=== PATIENT | female | born 1960 | race Hispanic/Latino ===

== ENCOUNTER 2018-04-16 16:53 | Inpatient (IN) | payer OTHER ==
[~2018-04-16] VITALS: Ht 154.9 cm; Wt 77.2 kg
[2018-04-16] MEDS ORDERED: SODIUM CHLORIDE 0.9% 1000ML 1,000 ML IV STA (17:08)
[2018-04-16] MEDS ORDERED: PIPER-TAZ 3.375 GM 50 ML IV STA (17:08)
[2018-04-16] MEDS ORDERED: VANCOMYCIN 1GM/NS 250 ML 250 ML IV SCH (17:15)
[2018-04-16] MEDS ORDERED: VANCOMYCIN 1GM/NS 250 ML 250 ML IV STA (17:25)
[2018-04-16] MEDS ORDERED: PIPER-TAZ 3.375 GM 50 ML IV SCH (17:30)
--- OUTSIDE RECORDS SUMMARY | 2018-04-16 18:18 | XMS REPORT | Summary of Care ---
Author Author Mili Morris M.A. Unknown Address Unknown Phone Unavailable Care Team Providers Care Game Master Name Role Phone EDOUARD RUST M.D. Unavailable Unavailable Functional Status Name Dates Details Functional status health issues are not documented Status: Name Dates Details Cognitive status health issues are not documented Status: Problems Name Dates Details Limb pain (729.5, M79.609) Status: Active Medications Name Dates Details Medications not documented Allergies and Adverse Reactions Name Dates Details Allergy history not documented Status: Procedures Procedure Dates Details Procedures not documented Immunization Name Dates Details Immunizations not documented Social History Name Dates Details Unknown if ever smoked Vital Signs Date Test Result Details No Known Vitals to report Results Date Description Value Details [id number] [U] XRAY HIPS BILATERAL MIN 2 VWS AND AP PELVIS [id number] XR HIPS BILATERAL MIN 2 VWS AND AP PELVIS Images acquired, not reported on this accession number. Plan of Care Name Dates Details Planned Observations Planned Goals not documented Planned Encounters Appointment; EDOUARD RUST M.D. On: 23-Apr-2018 8:45 Interventions Provided Labs/Procedures/Imaging* [U] XRAY HIPS BILATERAL MIN 2 VWS AND AP PELVIS [id number]; Done: 26 Mar 2018 Instructions Name Dates Details Instructions not documented Encounters Appointment; EDOUARD RUST M.D. Encounter Diagnosis: Problem not documented On: 26-Mar-2018 15:00
[2018-04-16 18:56] LABS: BASOPHILS % 0.2 % (0.0-1.0); EOSINOPHILS % 0.2 % (0.0-6.0); HEMATOCRIT 32.6 % (34.2-44.1); HEMOGLOBIN 10.7 g/dL (12.0-16.0); LYMPHOCYTES # (AUTO) 1.3 (1.0-3.2); LYMPHOCYTES % 10.9 % (18.0-39.1); MEAN CORPUSCULAR HEMOGLOBIN 25.7 pg (28-32); MEAN CORPUSCULAR HGB CONC 32.8 g/dL (31-35); MEAN CORPUSCULAR VOLUME 78.4 fL (81-99); MONOCYTES # (AUTO) 0.9 (0.2-0.8); MONOCYTES % 7.4 % (4.4-11.3); NEUTROPHILS % 80.8 % (38.7-80.0); PLATELET COUNT 450 x10e3/uL (140-360); RED BLOOD COUNT 4.16 x10e6/uL (3.6-5.1); RED CELL DISTRIBUTION WIDTH 12.4 % (11.7-14.4)
[2018-04-16 19:18] LABS: ALANINE AMINOTRANSFERASE 8 IU/L (0-55); ALBUMIN 2.9 g/dL (3.5-5.0); ALBUMIN/GLOBULIN RATIO 0.4 (0.8-2.0); ALKALINE PHOSPHATASE 133 IU/L (40-150); ANION GAP 15.8 mmol/L (8-16); BLOOD UREA NITROGEN 22 mg/dL (7-26); BUN/CREATININE RATIO 26 (6-25); CALCIUM 10.2 mg/dL (8.4-10.2); CARBON DIOXIDE 24 mmol/L (22-29); CHLORIDE 93 mmol/L (98-107); CREATININE, SERUM 0.84 mg/dL (0.57-1.11); EST GLOMERULAR FILTRATION RATE > 60 ML/MIN (60-); GLUCOSE 263 mg/dL (74-118); POTASSIUM 4.8 mmol/L (3.5-5.1); SODIUM 128 mmol/L (136-145)
[2018-04-16] MEDS ORDERED: SODIUM CHLORIDE 0.9% 1000ML 1,000 ML ONE (20:18)
[2018-04-16] MEDS: MORPHINE SULFATE 2 MG/ML SYR IV PRN (23:19)
[2018-04-16] MEDS ORDERED: METFORMIN HCL500 MG PO (23:31)
[2018-04-16] MEDS ORDERED: GLIPIZIDE5 MG PO (23:31)
[2018-04-16] MEDS ORDERED: OMEPRAZOLE40 MG PO (23:31)
[2018-04-16] MEDS ORDERED: NAPROXEN250 MG PO (23:31)
[2018-04-16] MEDS ORDERED: CYCLOBENZAPRINE10 MG PO (23:31)
[2018-04-17] VITALS (7 sets, daily range): BP systolic 116–136; BP diastolic 61–76
[2018-04-17] MEDS ORDERED: SODIUM CHLORIDE 0.9% 250ML 250 ML ONE (05:55)
[2018-04-17] MEDS: PIPER-TAZ 3.375 GM 50 ML IV SCH ×3 (06:00→22:29)
[2018-04-17] MEDS: VANCOMYCIN 1GM/NS 250 ML 250 ML IV SCH ×2 (08:00→20:26)
[2018-04-17] MEDS: SODIUM CHLORIDE 0.9% 1000ML 1,000 ML IV SCH (14:15)
--- NOTE | 2018-04-17 15:47 | History and Physical ---
CHIEF COMPLAINT: Infection of pubic symphysis bone per the CT of the abdomen and pelvis. Patient was sent from Dr. Montes's office. HPI: Ms. Ring is a 58-year-old female. She has a history of diabetes and hypertension. She was having abdominal pain. Her primary care physician referred her to Dr. Montes and she underwent a CT of the abdomen and pelvis, which showed that there are septic pubic symphysis joints and surrounding inflammatory changes. Patient came to the emergency room and was admitted. Surgery and infectious disease has been consulted. She is having pain in the lower abdomen, which is radiating to the right thigh. She is denying any complaints of chest pain, nausea, or vomiting. REVIEW OF SYSTEMS GENERAL: She was having fever. Denies any chills HEAD: Denies any head trauma. ENT: Denies any earache. CVS: Denies any chest pain. RESPIRATORY: Denies any shortness of breath. GI: Denies any nausea or vomiting. The rest of the review of systems is negative except as in HPI. PAST MEDICAL HISTORY: Hypertension, diabetes. PAST SURGICAL HISTORY: . FAMILY AND SOCIAL HISTORY: She does not smoke and does not drink. PHYSICAL EXAMINATION VITAL SIGNS: Temperature 97.3, pulse of 70, blood pressure 116/61, and respiratory rate of 18. HEENT: Head atraumatic, normocephalic. NECK: Supple. CHEST: Clear to auscultation bilaterally. No wheezing. ABDOMEN: Soft, nontender. EXTREMITIES: No clubbing, cyanosis, or edema. NEUROLOGIC: Awake and alert. No focal neurologic deficit. LABS: White count of 12,000, hemoglobin 10.7, platelets 450. Chemistry: Sodium 128, potassium 4.8, chloride 93, BUN 22, creatinine 0.8, lactic acid 20.2. Blood cultures have been positive for gram-positive cocci in clusters. CT of the abdomen and pelvis without and with contrast shows overall findings concerning for septic pubic symphysis joint with surrounding inflammatory changes, inflammatory changes surrounding the anterior aspect of the bladder which is contagious to pubic symphysis. Gram-stain showing gram-positive cocci in clusters. ASSESSMENT: Ms. Ring is a 58-year-old female. She is septic with positive blood cultures, pubic symphysis infection, and osteomyelitis as a concern. PLAN I have discussed the case with Dr. Feldman and he will evaluate the patient. He has asked the family to bring the CDs so he can evaluate if any surgical intervention is needed. We will consult Dr. Church for antibiotic recommendations. Patient is mildly hyponatremic. I will start the patient on IV normal saline. If it is getting worse, we will consider consulting nephrology. Orthopedic surgery has also been consulted as patient's pubic symphysis is involved. This was discussed with patient's daughter at bedside in detail. Job#: [id number] VIN
[2018-04-17] MEDS: CYCLOBENZAPRINE HCL 10 MG TAB PO SCH (16:01)
--- NOTE | 2018-04-17 18:35 | Consultation ---
DATE OF CONSULTATION: REASON FOR CONSULTATION: Intrapelvic abscess. HISTORY OF PRESENT ILLNESS: This patient, who is a 58-year-old female, apparently has history of diabetes mellitus. She fell about a month ago and she is having pain in the right side anterior to the pelvis. The patient went to see primary care physician who referred her to Dr. Montes. CAT scan of the abdomen showed suprapubic symphysis joint infection, came into the emergency room. Patient is being admitted. PAST MEDICAL HISTORY: Diabetes mellitus, hypertension. PAST SURGICAL HISTORY: . ALLERGIES: NKA. SOCIAL HISTORY: There is no smoking, drug abuse, or alcohol abuse. FAMILY HISTORY: Hypertension. REVIEW OF SYSTEMS HEENT: Negative. PULMONARY: Negative. CARDIAC: Negative. : Negative. SKIN: There is no rash. LABORATORY DATA: Blood culture is showing gram-positive cocci. White count 12.33, hemoglobin of 10. Sodium 128, potassium 4.8, creatinine 0.84. Lactic acid 20.4. PHYSICAL EXAMINATION GENERAL: She is currently alert and oriented. Does not seem to be in any acute distress. VITALS: Stable, currently afebrile. HEENT: She does not appear icteric. NECK: Supple. CHEST: Clear. HEART: S1, S2 normal. ABDOMEN: Soft. IMPRESSION: Infection of pubic symphysis joint, osteomyelitis, probably abscess with bacteremia. Agree with vancomycin. Obtain a sed rate, C-reactive protein. Will check blood cultures. Obtain echocardiogram. Will need 8 weeks of IV antibiotic. Will follow. Job#: [id number] RTMarcelo
--- NOTE | 2018-04-17 20:17 | Diagnostic Imaging Report ---
EXAM: CHEST XRAY LINE PLACEMENT, AP 1 view INDICATION: PICC placement COMPARISON: None FINDINGS: LINES/TUBES: Distal aspect of a left approach PICC terminates in expected location of the distal superior vena cava. LUNGS: No consolidations or edema. PLEURA: No effusions or pneumothorax. HEART AND MEDIASTINUM: Normal size and contour. BONES AND SOFT TISSUES: No acute findings. IMPRESSION: Distal aspect of a left approach PICC terminates in expected location of the distal superior vena cava. Signed by: Dr. Jamila Colorado M.D. on 04/17/2018 8:13 PM
[2018-04-18] VITALS (7 sets, daily range): BP systolic 118–137; BP diastolic 57–77
[2018-04-18] MEDS: SODIUM CHLORIDE 0.9% 1000ML 1,000 ML IV SCH ×3 (00:15→20:15)
[2018-04-18] MEDS: PIPER-TAZ 3.375 GM 50 ML IV SCH ×3 (05:45→22:30)
[2018-04-18 05:58] LABS: BASOPHILS # (AUTO) 0.1 (0.0-0.1); BASOPHILS % 0.6 % (0.0-1.0); EOSINOPHILS # (AUTO) 0.1 (0.0-0.4); EOSINOPHILS % 1.3 % (0.0-6.0); HEMATOCRIT 29.8 % (34.2-44.1); HEMOGLOBIN 9.6 g/dL (12.0-16.0); LYMPHOCYTES # (AUTO) 1.5 (1.0-3.2); LYMPHOCYTES % 17.9 % (18.0-39.1); MEAN CORPUSCULAR HEMOGLOBIN 25.3 pg (28-32); MEAN CORPUSCULAR HGB CONC 32.2 g/dL (31-35); MEAN CORPUSCULAR VOLUME 78.4 fL (81-99); MONOCYTES # (AUTO) 0.9 (0.2-0.8); NEUTROPHILS % 69.7 % (38.7-80.0); PLATELET COUNT 408 x10e3/uL (140-360); RED CELL DISTRIBUTION WIDTH 12.3 % (11.7-14.4)
[2018-04-18 06:43] LABS: ANION GAP 12.8 mmol/L (8-16); BLOOD UREA NITROGEN 11 mg/dL (7-26); BUN/CREATININE RATIO 14 (6-25); CARBON DIOXIDE 26 mmol/L (22-29); CHLORIDE 100 mmol/L (98-107); CREATININE, SERUM 0.79 mg/dL (0.57-1.11); EST GLOMERULAR FILTRATION RATE > 60 ML/MIN (60-); GLUCOSE 184 mg/dL (74-118); POTASSIUM 3.8 mmol/L (3.5-5.1); SODIUM 135 mmol/L (136-145)
[2018-04-18] MEDS: GLIPIZIDE 5 MG TAB PO SCH (08:43)
[2018-04-18] MEDS: VANCOMYCIN 1GM/NS 250 ML 250 ML IV SCH ×2 (08:43→20:25)
[2018-04-18] MEDS: PANTOPRAZOLE SOD 40 MG TABEC PO SCH (08:44)
[2018-04-18] MEDS: CYCLOBENZAPRINE HCL 10 MG TAB PO SCH ×2 (08:44→16:36)
[2018-04-18] MEDS: METFORMIN HCL 500 MG TAB PO SCH (16:36)
--- NOTE | 2018-04-18 20:07 | Consultation ---
DATE OF CONSULTATION: April 18, 2018 CARDIOLOGY CONSULTATION REASON FOR CONSULTATION: Evaluate cardiac status. HISTORY OF PRESENT ILLNESS: Ms. Ring is a 58-year-old lady with past medical history of type 2 diabetes, who presented to this institution after progressively worsening pain, difficult to ambulate due to intense right hip, radiating to the right groin, dull ache, that has been relentless ever since having a fall back in February. Upon probing the patient, patient's first issue really began back in June and July time of 2017. She developed a draining abscess in her pubic area and inner thigh and decided not to bring it to anyone's attention. She has been trying to locally manage it and has reported it to become much worse over the year. When she had her fall, she had re-draining of the abscess and overall comes in with severe pain. When she presented, she was noted to be mildly septic, but denied any fevers, chills, or any weight changes. She had abdomen and pelvic CT done at an outside institution, which shows erosive changes of the symphysis pubis region. In light of these findings, we are consulted for preoperative evaluation as well as input in this case. Patient reports no prior issues with anesthesia in the past. Has had a remote history of and tubal ligation. At baseline, she is very active and has no angina or anginal equivalent symptoms. She denies again any fevers, chills, or any other rashes. PAST MEDICAL HISTORY: Type 2 diabetes. PAST SURGICAL HISTORY 1. History of surgery. 2. History of bilateral tubal ligation. FAMILY HISTORY: Mother in her 60s, unknown cause. Father is alive in his late 80s, has hypertension, diabetes. Has several brothers and sisters with diabetes. No family history of coronary artery disease. SOCIAL HISTORY: She is a lifelong nonsmoker. Denies any alcohol or illicit drug use. ALLERGIES: NO KNOWN DRUG ALLERGIES. HOME MEDICATIONS: Include glipizide 10 mg daily, metformin 1000 mg b.i.d., omeprazole 40 mg daily. REVIEW OF SYSTEMS GENERAL: Denies any fevers, chills, or any weight changes. HEENT: No headaches, visual complaints, sore throat, stuffy nose. RESPIRATORY: Denies any pleuritic chest pain, exertional dyspnea, or coughing. CARDIOVASCULAR: Denies any palpitations, chest pain, orthopnea, PND, syncope, or near syncope. GI: Denies any abdominal pain, bright red blood per rectum, melena, hematemesis. : Denies any pyuria, hematuria, or change in urinary frequency. Does have a drainage in her right groin inner thigh region. MUSCULOSKELETAL: Positive for right hip, right groin and lower back pain as per HPI. No leg swelling. No typical claudication symptoms. HEMATOLOGY: No easy bruising or bleeding. ID: No known prior history of infectious issues. NEUROLOGIC: Denies any focal weakness, numbness, tingling, seizures, headache, history of TIA or stroke. Remainder of review of systems negative, otherwise as mentioned. PHYSICAL EXAMINATION VITAL SIGNS: Height of 61 inches, weight of 170 pounds, BMI is 32.1. Temperature of 96.6, pulse is 69, respiratory rate of 20, blood pressure 128/61. GENERAL: This is a well-nourished, well-developed lady who is currently in no apparent distress. HEENT: Pupils are equal, round, reactive to light. Extraocular movements are intact. Oropharynx is clear. NECK: No elevation of jugular venous pulsation. No carotid bruits. CARDIOVASCULAR: Regular rate and rhythm. Normal S1 and S2. Soft 1/6 systolic murmur at left lower sternal border. LUNGS: Clear to auscultation bilaterally. Good air entry. ABDOMEN: Soft, nontender, nondistended. Normoactive bowel sounds. No hepatosplenomegaly. BACK: No costovertebral angle tenderness. EXTREMITIES: Warm with 2+ bilateral radial pulses, 2+ bilateral pedal pulses. There is severe tenderness to palpation with minimal movement of the right hip region with decreased range of motion. There are 2 small openings in the right thigh groin crease region with slight drainage and mild erythema in the area. Left arm with PICC. NEUROLOGIC: Cranial nerves II through XII are intact. Moves all 4 extremities. Limited participation in strength due to pain in the right leg region. LABS: White count down from12.3 to 8.6, hemoglobin 9.6, hematocrit 29.8, platelets of 408. MCV is 78.4. Sodium 135, potassium 3.8, chloride 100, bicarb 26, BUN 11, creatinine is 0.79, glucose of 184. Lactic acid level was 20.2. Calcium of 9.0, AST 14, ALT 8, alk phos 133, total protein 9.6, albumin of 2.9. CRP pending. CT abdomen and pelvis with and without contrast reveals left adrenal nodule 2.6 x 2.1 cm along with pubic symphysis with fat stranding, inflammatory changes with erosive changes with sclerosis of the pubic symphysis bilaterally and concern for septic pubic symphysis joint and inflammatory changes of the musculature with a 1.5 x 1.2 cm region as well as grade 1 anterolisthesis of the L5 and S1. EKG is pending. DIAGNOSES 1. Septic pubic symphysis joint with source most likely groin abscess that has been ongoing for about 9 to 10 months now. 2. Sepsis and likely septic arthritis as noted above. 3. Type 2 diabetes. 4. Isolated incidental left adrenal nodule. PLAN/RECOMMENDATIONS 1. From a cardiovascular standpoint, I will check EKG and assuming it is sinus rhythm with normal AV conduction, we will go ahead and clear her for any surgical intervention as necessary. 2. I appreciate primary team along with orthopedic, general surgery consultants. 3. We will follow up on blood cultures. 4. Echocardiogram reviewed revealing EF of 60% to 65% with no significant valvular heart abnormality and no definitive signs of any vegetations. 5. Case discussed with family as well as daughter who understands what is going on. 6. We will continue to follow this patient while she is here. Job#: [id number] KRISTIN
[2018-04-19 00:49] VITALS: BP 144/63
[2018-04-19] MEDS: SODIUM CHLORIDE 0.9% 1000ML 1,000 ML IV SCH ×3 (02:08→17:36)
[2018-04-19 06:17] VITALS: BP 127/80
[2018-04-19] MEDS: PIPER-TAZ 3.375 GM 50 ML IV SCH ×3 (06:24→22:15)
[2018-04-19 08:48] VITALS: BP 131/67
[2018-04-19 09:00] VITALS: BP 131/67
[2018-04-19] MEDS: METFORMIN HCL 500 MG TAB PO SCH ×2 (09:22→17:36)
[2018-04-19] MEDS: VANCOMYCIN 1GM/NS 250 ML 250 ML IV SCH ×2 (09:22→20:36)
[2018-04-19] MEDS: GLIPIZIDE 5 MG TAB PO SCH (09:22)
[2018-04-19] MEDS: CYCLOBENZAPRINE HCL 10 MG TAB PO SCH ×2 (09:23→17:36)
[2018-04-19] MEDS: PANTOPRAZOLE SOD 40 MG TABEC PO SCH (09:23)
[2018-04-19] MEDS ORDERED: IOPAMIDOL 370 MG/ML 200 ML INFUS..BTL INJ ONE (12:24)
[2018-04-19] MEDS ORDERED: SODIUM CHLORIDE 0.9% 50ML 50 ML ONE (12:24)
[2018-04-19 12:25] VITALS: BP 147/66
--- NOTE | 2018-04-19 12:41 | Diagnostic Imaging Report ---
EXAM: CT of the abdomen and pelvis WITH contrast HISTORY: Compare infection of pubic symphysis COMPARISON: Images from a CT performed at an outside institution on April 16, 2018. TECHNIQUE: The abdomen and pelvis extending to the mid thigh were scanned utilizing a multidetector helical scanner. Coronal and sagittal reformats are provided. PROTOCOL: Routine IV CONTRAST: 100 cc of Isovue-370. ORAL CONTRAST: Dilute Gastrografin RADIATION DOSE: Total DLP: 880.2 mGy*cm Estimated effective dose: (DLP x 0.015 x size factor) Dose modulation, iterative reconstruction, and/or weight based adjustment of the mA/kV was utilized to reduce the radiation dose to as low as reasonably achievable. COMPLICATIONS: None FINDINGS: Motion artifact partially limits sensitivity and specificity of the exam, especially the limited images through the lower thorax. HEPATOBILIARY: The abdomen the liver is not completely included. The gallbladder is unremarkable. SPLEEN: No splenomegaly. PANCREAS: No focal masses or ductal dilatation. ADRENALS: Stable 2.5 cm left adrenal nodule, measures less than 15 Hounsfield units on the comparison noncontrast images. KIDNEYS/URETERS: No hydronephrosis, stones, or solid mass lesions. PELVIC ORGANS/BLADDER: The urinary bladder is partially decompressed, allowing for the amount of decompression, the anterior wall appears nonspecifically thickened compared to the posterior wall. PERITONEUM / RETROPERITONEUM: No free air or fluid. LYMPH NODES: No pathologically enlarged lymph node. VESSELS: A few scattered atherosclerotic vascular calcifications. GI TRACT: No distention or wall thickening identified. The appendix is normal. BONES: The pubic symphysis is mildly widened with irregularity and sclerosis of the adjacent parasymphyseal regions of the pubic bones. Large pubic symphysis joint effusion. SOFT TISSUES: Prominent regional soft tissue hyperemia about the pubic symphysis and the adjacent abductor muscles abutting or contiguous with the pubic symphysis joint effusion and a peripherally enhancing fluid collection within the adjacent right abductor longus muscle, measuring 1.9 cm (AP) x 1.9 cm (ML) x 10 cm (CC). This collection appears more organized and loculated versus the comparison. IMPRESSION: 1. 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 2. Soft tissue abscess within the right adductor longus muscle. 3. Left lipid-rich adrenal adenoma. Signed by: Dr. Harvey Flores D.O., M.M.M. on 04/19/2018 12:38 PM
[2018-04-19] MEDS ORDERED: FENTANYL CITRATE/PF 100MCG/2 ML INJ ONE (16:12)
[2018-04-19] MEDS ORDERED: MIDAZOLAM HCL 2 MG/2 ML VIAL ONE (16:12)
[2018-04-19] MEDS ORDERED: SODIUM CHLORIDE 0.9% 500ML 500 ML ONE (16:12)
[2018-04-19] MEDS ORDERED: LIDOCAINE HCL 1% LOCAL INJ 20 ML VIAL ONE (16:15)
[2018-04-19 20:00] VITALS: BP 123/66
[2018-04-19] MEDS: MORPHINE SULFATE 2 MG/ML SYR IV PRN (20:45)
--- NOTE | 2018-04-19 23:47 | Consultation ---
DATE OF CONSULTATION: Ms. Ring is a known patient to me from the office, when she presented with tender left groin with abdominal pain in left lower quadrant, right lower quadrant for the past several months, progressive. Pain occurred during body movement, does feel like stabbing, variable in duration, occurred every day, is not radiated. Pain was severe , which she lost her appetite which she had lost 37 pounds over 3 months associated with some heartburn. She denies trouble with her bowels. Denies any blood in stool, nausea, and vomiting. She does use nonsteroidal anti-inflammatory drugs. After we saw her in the office, we ordered a CT scan for evaluation, where the report came back suggestive severe pelvic floor infection especially in the pubic symphysis bone and possible septic osteomyelitis. Patient was admitted to the [facility] for evaluation. Infectious disease, general surgery, and orthopedics were consulted. A repeat CT scan at the [facility] confirmed the earlier findings as pubic symphysis arthritis and septic osteomyelitis, soft tissue abscess, which was drained today located within the right adductor longus muscle. Dr. Church has seen the patient for sepsis and infection. Talking to patient, she admitted during her hospital stay, which she never admitted during her office visit that she had 2 abscesses in her groin area and did not inform anybody about those abscesses and she has been doing home remedy treatment in an attempt to treat those abscesses, presumably the source of the infection. MEDS: Currently, the patient she is on metformin, Flexeril, glipizide, vancomycin, and piperacillin/tazobactam. ALLERGIES: NIL. PAST MEDICAL HISTORY: Diabetes. SURGICAL HISTORY: Tubal ligation, . FAMILY HISTORY: Unremarkable. SOCIALLY: Unemployed, , has 3 kids. Does not drink and smoke. EXAM GENERAL: Awake, alert, oriented. Hemodynamically stable. VITAL SIGNS: Temperature 96.6, pulse 78, blood pressure 147/66. HEENT: Supple. Normal sclerae. LUNGS: Clear to auscultation in both lung turk. HEART: Regular irregular. No added sounds. ABDOMEN: Not distended. Bowel sounds present. Mild left lower quadrant and right lower quadrant tenderness, but no acute sign, no organomegaly and no masses. LABORATORY TESTS: Today, her white cell count 8.5, down from 12, hemoglobin 9.6, hematocrit 30, platelets 100,000. BUN 11, creatinine 0.79, sodium 135, potassium 3.8, calcium 10.8. Liver function unremarkable. IMPRESSION: She has osteomyelitis, undergoing treatment, severe sepsis and abscess formation in her pelvic area. There is no gastrointestinal issue to be addressed at this time except for routine colon cancer screening because of her age and this can be done at a later time, when she recovers with from her current . My only advice is to continue using antacid treatment for the time being. Job#: [id number] CQ
[2018-04-20] VITALS: BP_SYST 110; BP_SYST 123; BP_DIAS 56; BP_DIAS 66
[2018-04-20] MEDS: SODIUM CHLORIDE 0.9% 1000ML 1,000 ML IV SCH ×3 (03:53→21:47)
[2018-04-20 04:00] VITALS: BP 129/69
[2018-04-20] MEDS: PIPER-TAZ 3.375 GM 50 ML IV SCH ×3 (05:47→22:50)
[2018-04-20] MEDS: GLIPIZIDE 5 MG TAB PO SCH (07:30)
[2018-04-20] MEDS: METFORMIN HCL 500 MG TAB PO SCH ×2 (08:00→17:47)
[2018-04-20] MEDS: VANCOMYCIN 1GM/NS 250 ML 250 ML IV SCH ×2 (08:00→21:15)
[2018-04-20] MEDS: PANTOPRAZOLE SOD 40 MG TABEC PO SCH (09:00)
[2018-04-20] MEDS: CYCLOBENZAPRINE HCL 10 MG TAB PO SCH ×2 (09:00→17:47)
[2018-04-20 09:01] VITALS: BP 113/58
[2018-04-20 13:58] VITALS: BP 136/63
[2018-04-20 16:49] VITALS: BP 119/56
[2018-04-20 20:00] VITALS: BP 124/58
[2018-04-21] VITALS (7 sets, daily range): BP systolic 111–157; BP diastolic 56–72
[2018-04-21] MEDS: PIPER-TAZ 3.375 GM 50 ML IV SCH ×3 (05:20→22:43)
[2018-04-21] MEDS: METFORMIN HCL 500 MG TAB PO SCH ×2 (09:48→17:11)
[2018-04-21] MEDS: GLIPIZIDE 5 MG TAB PO SCH (09:48)
[2018-04-21] MEDS: VANCOMYCIN 1GM/NS 250 ML 250 ML IV SCH ×2 (09:48→20:34)
[2018-04-21] MEDS: PANTOPRAZOLE SOD 40 MG TABEC PO SCH (09:49)
[2018-04-21] MEDS: CYCLOBENZAPRINE HCL 10 MG TAB PO SCH ×2 (09:49→17:11)
[2018-04-21] MEDS: SODIUM CHLORIDE 0.9% 1000ML 1,000 ML IV SCH ×2 (09:50→18:15)
[2018-04-22 00:08] VITALS: BP 152/66
[2018-04-22] MEDS: SODIUM CHLORIDE 0.9% 1000ML 1,000 ML IV SCH ×2 (03:39→14:29)
[2018-04-22 05:23] VITALS: BP 141/69
[2018-04-22] MEDS: PIPER-TAZ 3.375 GM 50 ML IV SCH ×2 (05:33→14:28)
--- NOTE | 2018-04-22 07:14 | Diagnostic Imaging Report ---
Date and Time: 04/19/2018 Procedure: CT-guided drainage of an intramuscular abscess in the right thigh plastics spreading machine operator: Dr. Carr Assistants: None Pre-operative diagnosis: Intramuscular fluid collection right thigh Post-operative diagnosis: Intramuscular abscess right thigh Conscious Sedation: Versed 0.5 mg and Fentanyl 25 mcg. The patient's heart rate and pulse oximetry were continuously monitored by the interventional radiology nurse. Blood pressure was monitored at 5 minute intervals. Total intraservice time for sedation: 50 minutes Additional Medications: Lidocaine 1% for local anesthesia Contrast used: None Estimated blood loss: Less than 5 cc Blood products administered: None Specimens: 7 cc. Pus Implants: 10 Indonesian locking loop all purpose drainage catheter Condition at completion of procedure: Stable Disposition: Returned to floor DISCUSSION: Informed consent was obtained and documented in the medical record after discussion of risks and benefits. The patient was placed in the supine position on the CT couch and a marker grid was placed over the medial right upper thigh. Limited CT of the area of interest was performed and a suitable percutaneous approach to the intramuscular fluid collection within the medial right thigh was identified. The overlying skin was marked then prepped and draped in standard sterile fashion. 1% lidocaine was infiltrated into the skin and subcutaneous tissues for local anesthesia. Then under intermittent CT guidance, an 18-gauge needle was advanced into the fluid collection. Return of thick fluid confirmed appropriate position. A 0.0 3 5-in. Amplatz wire was then coiled within the collection. The needle was removed over the wire, the tract was dilated, and a 10 Indonesian locking loop all purpose drainage catheter was advanced over the wire and positioned within the fluid collection. The wire was removed and final CT images documented appropriate catheter position. A total of 7 cc pus were aspirated through the catheter. Specimen was submitted for Gram stain, aerobic and anaerobic culture, as well as cytology per referring service request. The catheter was secured to the skin with monofilament nylon suture and connected to gravity drainage. The patient tolerated the procedure well without immediate complication. FINDINGS: Intramuscular abscess in the right medial thigh. IMPRESSION: Successful CT-guided percutaneous drainage catheter placement within a right thigh intramuscular abscess. Orders were written to flush and aspirate the catheter with 5 cc sterile saline daily with monitoring catheter output every shift. Signed by: Dr. Dragan Carr M.D. on 04/22/2018 7:11 AM
[2018-04-22] MEDS: VANCOMYCIN 1GM/NS 250 ML 250 ML IV SCH (07:50)
[2018-04-22] MEDS: METFORMIN HCL 500 MG TAB PO SCH ×2 (07:50→17:20)
[2018-04-22] MEDS: GLIPIZIDE 5 MG TAB PO SCH (07:50)
[2018-04-22 08:13] VITALS: BP 145/68
[2018-04-22] MEDS: PANTOPRAZOLE SOD 40 MG TABEC PO SCH (08:55)
[2018-04-22] MEDS: CYCLOBENZAPRINE HCL 10 MG TAB PO SCH ×2 (08:55→17:20)
[2018-04-22 09:00] VITALS: BP 145/68
[2018-04-22 12:00] VITALS: BP 139/68
[2018-04-22] MEDS ORDERED: VANCOMYCIN1 GM/250 M IV (15:23)
[2018-04-22] MEDS ORDERED: LIPITOR20 MG PO (15:25)
[2018-04-22 16:22] LABS: % IRON SATURATION 11 % (15-50); IRON 25 ug/dL (50-170); TOTAL IRON BINDING CAPACITY 228 ug/dL (261-478); TRANSFERRIN 163 mg/dL (180-382)
[2018-04-22 17:15] LABS: HIV 1&2 AB SCREEN NON-REACTIVE (NONREACTIVE)
--- NOTE | 2018-04-22 17:19 | Discharge Summary ---
A patient of Dr. Rangel, , Dr. Feldman, Dr. Church, Dr. Story, Dr. Whitehead, Dr. Montes. A charming but unfortunate 58-year-old diabetic woman admitted on April 16 with infection of the pubic symphysis on CT of the abdomen. She was sent from Dr. Montes's office. She was found to have an abscess in the adductor muscle of the right leg, the right adductor longus. She also had osteomyelitis suspected in the pubic symphysis. Patient was treated with vancomycin and Zosyn. She was seen by Dr. Díaz, and the abscess was drained percutaneously. Cultures, however, were negative to date. She grew Staph epidermidis from the blood. Patient gradually improved. Surgery was felt not to be necessary. White count fell. HIV serology is pending but felt to be unlikely positive. IV vancomycin has been arranged to be supervised by Dr. Church. Lipid profile is pending. Catheter was removed. The patient is discharged with a PICC line to be followed by Dr. Church as an outpatient. In addition to IV vancomycin, she will continue Flexeril 7.5 mg b.i.d., glipizide 10 mg before breakfast, metformin 1 g b.i.d., Protonix 40 mg a day, and Naprosyn 250 b.i.d. . There is evidence of anemia that turns out to be anemia of chronic disease. Iron levels are pending at the time of discharge. Discharged to be followed as an outpatient by Dr. Montes, and Dr. Church. Job#: [id number] EV
[2018-04-22 17:27] VITALS: BP 149/71
[2018-04-22] MEDS ORDERED: ATORVASTATIN CA20 MG PO ×2 (17:29→17:34)
== END 2018-04-22 19:35 | disposition home or self-care (01) | DRG 638 ==
LOC: ER 16:53 → ERHOLD 18:14 → MED/SURG2 04-17 00:35 → OBSVTOIN 04-18 15:20
PROVIDERS: ADMIT Internal Medicine; ATTEND Internal Medicine
PROC: 02HV33Z Insertion of Infusion Device into Superior Vena Cava, Percutaneous Approach (ICD-10-PCS; 2018-04-17)
PROC: 0K9Q30Z Drainage of Right Upper Leg Muscle with Drainage Device, Percutaneous Approach (ICD-10-PCS; principal; 2018-04-19)
DX: E11.69 Type 2 diabetes mellitus with other specified complication (principal); M86.8X8 Other osteomyelitis, other site; M00.80 Arthritis due to other bacteria, unspecified joint; M60.051 Infective myositis, right thigh; E87.1 Hypo-osmolality and hyponatremia; Z79.84 Long term (current) use of oral hypoglycemic drugs; I10 Essential (primary) hypertension; D63.8 Anemia in other chronic diseases classified elsewhere; E27.8 Other specified disorders of adrenal gland; E66.9 Obesity, unspecified; Z68.32 Body mass index [BMI] 32.0-32.9, adult; Z28.21 Immunization not carried out because of patient refusal
CPT/HCPCS: 36415; 36569; 49406; 71045; 74177; 74470; 80048; 80053; 80061; 80202; 82948; 83540; 83605; 84466; 85025; 85651; 86140; 87040; 87070; 87071; 87075; 87205; 87390; 93005; 93306; 99152; 99153; 99284; C1729; C1769; G0378; G0433; G0435; J2001; J2250; J2270; J2543; J3370; J7030; J7040; J7050; Q9967

== ENCOUNTER 2018-04-30 19:19 | Inpatient (IN) | payer OTHER ==
[~2018-04-30] VITALS: Ht 154.9 cm; Wt 80.4 kg
[~2018-04-30 19:19] MED LIST: ATORVASTATIN CA20 MG PO; CYCLOBENZAPRINE10 MG PO; GLIPIZIDE5 MG PO; LIPITOR20 MG PO; METFORMIN HCL500 MG PO; NAPROXEN250 MG PO; OMEPRAZOLE40 MG PO; VANCOMYCIN1 GM/250 M IV
--- OUTSIDE RECORDS SUMMARY | 2018-04-30 19:22 | XMS REPORT ---
Author Author [facility] Address Unknown Phone Unavailable Care Team Providers Care Railroad Design Consultant Name Role Phone JUDY ISAAC Unavailable Unavailable Problems This patient has no known problems. Allergies, Adverse Reactions, Alerts This patient has no known allergies or adverse reactions. Medications This patient has no known medications. Results Test Description Test Time Test Comments Text Results Atomic Results Result Comments IR CONSULT 2018-04-22 07:07:00 [place] [address] Patient Name: GILMA MCDONNELL MR #: [id number] : 1960 Age/Sex: 58/F Req #: [id number] [facility] Physician: JUDY ISAAC MD Ordered by: TIFFANIE SEVERINO MD Report #: [id number] Location: MED/SURG2 Room/Bed: [facility] [place][note 2] Procedure: [id number] DX/IR CONSULT Exam Date: Exam Time: REPORT STATUS: Signed Date and Time: 04/19/2018 Procedure: CT-guided drainage of an intramuscular abscess in the right thigh 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 The patient's heart rate and pulse oximetry were continuously monitored by the interventional radiology nurse. Blood pressure was monitored at 5 minute intervals. Total intraservice time for sedation: 50 minutes Additional Medications: Lidocaine 1% for local anesthesia Contrast used: None Estimated blood loss: Less than 5 cc Blood products administered: None Specimens: 7 cc. Pus Implants: 10 Citizen [place] locking loop all purpose drainage catheter Condition at completion of procedure: Stable Disposition: Returned to floor DISCUSSION: Informed consent was obtained and documented in the medical record after discussion of risks and benefits. The patient was placed in the supine posi tion on the CT couch and a marker grid was placed over the medial right upper thigh. Limited CT of the area of interest was performed and a suitable percutaneous approach to the intramuscular fluid collection within the medial right thigh was identified. The overlying skin was marked then prepped and draped in standard sterile fashion. 1% lidocaine was infiltrated into the skin and subcutaneous tissues for local anesthesia. Then under intermittent CT guidance, an 18-gauge needle was advanced into the fluid collection. Return of thick fluid confirmed appropriate position. A 0.0 3 5-in. Amplatz wire was then coiled within the collection. The needle was removed over the wire, the tract was dilated, and a 10 [place] locking loop all purpose drainage catheter was advanced over the wire and positioned within the fluid collection. The wire was removed and final CT images documented appropriate catheter position. A total of 7 cc pus were aspirated through the catheter. Specimen was submitted for Gram stain, aerobic and anaerobic culture, as well as cytology per referring service request. The catheter was secured to the skin with monofilament nylon suture and connected to gravity drainage. The patient tolerated the procedure well without immediate complication. FINDINGS: Intramuscular abscess in the right medial thigh. IMPRESSION: Suc cessful CT-guided percutaneous drainage catheter placement within a right thigh intramuscular abscess. Orders were written to flush and aspirate the catheter with 5 cc sterile saline daily with monitoring catheter output every shift. Signed by: Dr. Tiffanie Hensley M.D. on 04/22/2018 7:11 AM Dictated By: TIFFANIE HENSLEY MD 0 Transcribed By: ANA MARIA on 04/22/18710 COPY TO: TIFFANIE SEVERINO MD MOD SEDATE ADD 15 MIN<5YRS 2018-04-22 07:07:00 [place] [address] Patient Name: GILMA MCDONNELL MR #: [id number] : 1960 Age/Sex: 58/F [facility] #: [id number] [facility] Physician: JUDY ISAAC MD Ordered by: TIFFANIE HENSLEY MD Report #: [id number] Location: [facility] Room/Bed: [facility] [place][note 2] Procedure: [id number] CT/MOD SEDATE ADD 15 MIN<5YRS Exam Date: 04/19/18 Exam Time: 1710 REPORT STATUS: Signed Date and Time: 04/19/2018 Procedure: CT-guided drainage of an intramuscular abscess in the right thigh 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 The patient's heart rate and pulse oximetry were continuously monitored by the in terventional radiology nurse. Blood pressure was monitored at 5 minute intervals. Total intraservice time for sedation: 50 minutes Additional Medications: Lidocaine 1% for local anesthesia Contrast used: None Estimated blood loss: Less than 5 cc Blood products administered: None Specimens: 7 cc. Pus Implants: 10 [place] locking loop all purpose drainage catheter Condition at completion of procedure: Stable Disposition: Returned to floor DISCUSSION: Informed consent was obtained and documented in the medical record after discussion of risks and benefits. The patient was placed in the supine position on the CT couch and a marker grid was placed over the medial right upper thigh. Limited CT of the area of interest was performed and a suitable percutaneous approach to the intramuscular fluid collection within the medial right thigh was identified. The overlying skin was marked then prepped and draped in standard sterile fashion. 1% lidocaine was infiltrated into the skin and subcutaneous tissues for local anesthesia. Then under intermittent CT guidance, an 18-gauge needle was advanced into the fluid collection. Return of thick fluid confirmed appropriate position. A 0.0 3 5-in. Amplatz wire was then coiled within the collection. The needle was removed over the wire, the tract was dilated, and a 10 [place] locking loop all purpose drainage catheter was advanced over the wire and positioned within the fluid collection. The wire was removed and final CT images documented appropriate catheter position. A total of 7 cc pus were aspirated through the catheter. Specimen was submitted for Gram stain, aerobic and anaerobic culture, as well as cytology per referring service request. The catheter was secured to the skin with monofilament nylon suture and connected to gravity drainage. The patient tolerated the procedure well without immediate complication. FINDINGS: Intramuscular abscess in the right medial thigh. IMPRESSION: Successful CT-guided percutaneous drainage catheter placement within a right thigh intramuscular abscess. Orders were written to flush and aspirate the catheter with 5 cc sterile saline daily with monitoring catheter output every shift. Signed by: Dr. Tiffanie Hensley M.D. on 04/22/2018 7:11 AM Dictated By: TIFFANIE HENSLEY MD 0 Transcribed By: ANA MARIA on 04/22/18710 COPY TO: TIFFANIE HENSLEY MD MOD SEDATE ADD 15 MIN<5YRS 2018-04-22 07:07:00 [place] [address] Patient Name: GILMA MCDONNELL MR #: [id number] : 1960 Age/Sex: 58/F Req #: [id number] Adm Physician: JUDY ISAAC MD Ordered by: TIFFANIE HENSLEY MD Report #: [id number] Location: MED/SURG2 Room/Bed: [facility] [place][note 2] Procedure: [id number] CT/MOD SEDATE ADD 15 MIN<5YRS Exam Date: 04/19/18 Exam Time: 1654 REPORT STATUS: Signed Date and Time: 04/19/2018 Procedure: CT-guided drainage of an intramuscular abscess in the right thigh 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 The patient's heart rate and pulse oximetry were continuously monitored by the in terventional radiology nurse. Blood pressure was monitored at 5 minute intervals. Total intraservice time for sedation: 50 minutes Additional Medications: Lidocaine 1% for local anesthesia Contrast used: None Estimated blood loss: Less than 5 cc Blood products administered: None Specimens: 7 cc. Pus Implants: 10 [place] locking loop all purpose drainage catheter Condition at completion of procedure: Stable Disposition: Returned to floor DISCUSSION: Informed consent was obtained and documented in the medical record after discussion of risks and benefits. The patient was placed in the supine position on the CT couch and a marker grid was placed over the medial right upper thigh. Limited CT of the area of interest was performed and a suitable percutaneous approach to the intramuscular fluid collection within the medial right thigh was identified. The overlying skin was marked then prepped and draped in standard sterile fashion. 1% lidocaine was infiltrated into the skin and subcutaneous tissues for local anesthesia. Then under intermittent CT guidance, an 18-gauge needle was advanced into the fluid collection. Return of thick fluid confirmed appropriate position. A 0.0 3 5-in. Amplatz wire was then coiled within the collection. The needle was removed over the wire, the tract was dilated, and a 10 [place] locking loop all purpose drainage catheter was advanced over the wire and positioned within the fluid collection. The wire was removed and final CT images documented appropriate catheter position. A total of 7 cc pus were aspirated through the catheter. Specimen was submitted for Gram stain, aerobic and anaerobic culture, as well as cytology per referring service request. The catheter was secured to the skin with monofilament nylon suture and connected to gravity drainage. The patient tolerated the procedure well without immediate complication. FINDINGS: Intramuscular abscess in the right medial thigh. IMPRESSION: Successful CT-guided percutaneous drainage catheter placement within a right thigh intramuscular abscess. Orders were written to flush and aspirate the catheter with 5 cc sterile saline daily with monitoring catheter output every shift. Signed by: Dr. Tiffanie Hensley M.D. on 04/22/2018 7:11 AM Dictated By: TIFFANIE HENSLEY MD 0 Transcribed By: ANA MARIA on 04/22/18710 COPY TO: TIFFANIE HENSLEY MD, MD SEDATE INITIAL > 5 YRS 2018-04-22 07:07:00 [place] [address] Patient Name: GILMA MCDONNELL MR #: [id number] : 1960 Age/Sex: 58/F Req #: [id number] [facility] Physician: JUDY ISAAC MD Ordered by: TIFFANIE HENSLEY MD Report #: [id number] Location: [facility] Room/Bed: [facility] [place][note 2] Procedure: [id number] CT/ SEDCAM INITIAL > 5 YRS Exam Date: 04/19/18 Exam Time: 1638 REPORT STATUS: Signed Date and Time: 04/19/2018 Procedure: CT-guided drainage of an intramuscular abscess in the right thigh 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 The patient's heart rate and pulse oximetry were continuously monitored by the [facility] erventional radiology nurse. Blood pressure was monitored at 5 minute intervals. Total intraservice time for sedation: 50 minutes Additional Medications: Lidocaine 1% for local anesthesia Contrast used: None Estimated blood loss: Less than 5 cc Blood products administered: None Specimens: 7 cc. Pus Implants: 10 [place] locking loop all purpose drainage catheter Condition at completion of procedure: Stable Disposition: Returned to floor DISCUSSION: Informed consent was obtained and documented in the medical record after discussion of risks and benefits. The patient was placed in the supine position on the CT couch and a marker grid was placed over the medial right upper thigh. Limited CT of the area of interest was performed and a suitable percutaneous approach to the intramuscular fluid collection within the medial right thigh was identified. The overlying skin was marked then prepped and draped in standard sterile fashion. 1% lidocaine was infiltrated into the skin and subcutaneous tissues for local anesthesia. Then under intermittent CT guidance, an 18-gauge needle was advanced into the fluid collection. Return of thick fluid confirmed appropriate position. A 0.0 3 5-in. Amplatz wire was then coiled within the collection. The needle was removed over the wire, the tract was dilated, and a 10 [place] locking loop all purpose drainage catheter was advanced over the wire and positioned within the fluid collection. The wire was removed and final CT images documented appropriate catheter position. A total of 7 cc pus were aspirated through the catheter. Specimen was submitted for Gram stain, aerobic and anaerobic culture, as well as cytology per referring service request. The catheter was secured to the skin with monofilament nylon suture and connected to gravity drainage. The patient tolerated the procedure well without immediate complication. FINDINGS: Intramuscular abscess in the right medial thigh. IMPRESSION: Successful CT-guided percutaneous drainage catheter placement within a right thigh intramuscular abscess. Orders were written to flush and aspirate the catheter with 5 cc sterile saline daily with monitoring catheter output every shift. Signed by: Dr. Tiffanie Hensley M.D. on 04/22/2018 7:11 AM Dictated By: TIFFANIE HENSLEY MD 0 Transcribed By: ANA MARIA on 04/22/18710 COPY TO: TIFFANIE HENSLEY MD, ABD/ABSC W CATH-CT 2018-04-22 07:07:00 [place] [address] Patient Name: GILMA MCDONNELL MR #: [id number] : 1960 Age/Sex: 58/F Req #: [id number] [facility] Physician: JUDY ISAAC MD Ordered by: JUDY ISAAC MD Report #: [id number] Location: MED/SURG2 Room/Bed: [facility] [place][note 2] Procedure: [id number] CT/DRN ABD FLUID/ABSC W CATH-CT Exam Date: Exam Time: REPORT STATUS: Signed Date and Time: 04/19/2018 Procedure: CT-guided drainage of an intramuscular abscess in the right thigh 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 The patient's heart rate and pulse oximetry were continuously monitored by the interventional radiology nurse. Blood pressure was monitored at 5 minute intervals. Total intraservice time for sedation: 50 minutes Additional Medications: Lidocaine 1% for local anesthesia Contrast used: None Estimated blood loss: Less than 5 cc Blood products administered: None Specimens: 7 cc. Pus Implants: 10 [place] locking loop all purpose drainage catheter Condition at completion of procedure: Stable Disposition: Returned to floor DISCUSSION: Informed consent was obtained and documented in the medical record after discussion of risks and benefits. The patient was placed in the supine position on the CT couch and a marker grid was placed over the medial right upper thigh. Limited CT of the area of interest was performed and a suitable percutaneous approach to the intramuscular fluid collection within the medial right thigh was identified. The overlying skin was marked then prepped and draped in standard sterile fashion. 1% lidocaine was infiltrated into the skin and subcutaneous tissues for local anesthesia. Then under intermittent CT guidance, an 18-gauge needle was advanced into the fluid collection. Return of thick fluid confirmed appropriate position. A 0.0 3 5-in. Amplatz wire was then coiled within the collection. The needle was removed over the wire, the tract was dilated, and a 10 [place] locking loop all purpose drainage catheter was advanced over the wire and positioned within the fluid collection. The wire was removed and final CT images documented appropriate catheter position. A total of 7 cc pus were aspirated through the catheter. Specimen was submitted for Gram stain, aerobic and anaerobic culture, as well as cytology per referring service request. The catheter was secured to the skin with monofilament nylon suture and connected to gravity drainage. The patient tolerated the procedure well without immediate complication. FINDINGS: Intramuscular abscess in the right medial thigh. IMPRESSION: Successful CT-guided percutaneous drainage catheter placement within a right thigh intramuscular abscess. Orders were written to flush and aspirate the catheter with 5 cc sterile saline daily with monitoring catheter output every shift. Signed by: Dr. Tiffanie Hensley M.D. on 04/22/2018 7:11 AM Dictated By: TIFFANIE HENSLEY MD 0 Transcribed By: ANA MARIA on 04/22/18710 COPY TO: JUDY ISAAC MD CT ABDOMEN/PELVIS W 2018-04-19 12:20:00 [place] [address] Patient Name: GILMA MCDONNELL MR #: [id number] : 1960 Age/Sex: 58/F Req #: [id number] Adm Physician: JUDY ISAAC MD Ordered by: KEITH LIMON Report #: [id number] Location: MED/SURG2 Room/Bed: [facility] [place][note 2] Procedure: [id number] CT/CT ABDOMEN/PELVIS W Exam Date: 04/19/18 Exam Time: 1200 REPORT STATUS: Signed EXAM: CT of the abdomen and pelvis WITH contrast HISTORY: Compare infection of pubic symphysis COMPARISON: Images from a CT performed at an outside institution on April 16, 2018. TECHNIQUE: The abdomen and pelvis extending to the mid thigh were scanned utilizing a multidetector helical scanner. Coronal and sagittal reformats are provided. PROTOCOL: Routine IV CONTRAST: 100 cc of Isovue-370. ORAL CONTRAST: Dilute Gastrografin RADIATION DOSE: Total DLP: 880.2 mGy*cm Estimated effective dose: (DLP x 0.015 x size factor) Dose modulation, iterative reconstruction, and/or weight based adjustment of the mA/kV was utilized to reduce the radiation dose to as low as reasonably achievable. COMPLICATIONS: None FINDINGS: Motion artifact partially limits sensitivity and specificity of the exam, especially the limited images through the lower thorax. HEPATOBILIARY: The abdomen the liver is not completely included. The gallbladder is unremarkable. SPLEEN: No splenomegaly. PANCREAS: No focal masses or ductal dilatation. ADRENALS: Stable 2.5 cm left adrenal nodule, measures less than 15 Hounsfield units on the comparison noncontrast images. KIDNEYS/URETERS: No hydronephrosis, stones, or solid mass lesions. PELVIC ORGANS/BLADDER: The urinary bladder is partially decompressed, allowing for the amount of decompression, the anterior wall appears nonspecifically thickened compared to the posterior wall. PERITONEUM / RETROPERITONEUM: No free air or fluid. LYMPH NODES: No pathologically enlarged lymph node. VESSELS: A few scattered atherosclerotic vascular calcifications. GI TRACT: No distention or wall thickening identified. The appendix is normal. BONES: The pubic symphysis is mildly widened with irregularity and sclerosis of the adjacent parasymphyseal regions of the pubic bones. Large pubic symphysis joint effusion. SOFT TISSUES: Prominent regional soft tissue hyperemia about the pubic symphysis and the adjacent abductor muscles abutting or contiguous with the pubic symphysis joint effusion and a peripherally enhancing fluid collection within the adjacent right abductor longus muscle, measuring 1.9 cm (AP) x 1.9 cm (ML) x 10 cm (CC). This collection appears more organized and loculated versus the comparison. IMPRESSION : 1. 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 2. Soft tissue abscess within the right adductor longus muscle. 3. Left lipid-rich adrenal adenoma. Signed by: Dr. Jose Flores D.O., M.M.M. on 04/19/2018 12:38 PM Dictated By: JOSE FLORES DO 37 Transcribed By: ANA MARIA on 04/19/181237 COPY TO: KEITH LIMON CHEST XRAY LINE PLACEMENT 2018-04-17 20:09:00 [place] [address] Patient Name: GILMA MCDONNELL MR #: [id number] : 1960 Age/Sex: 58/F Req #: [id number] [facility] Physician: JUDY ISAAC MD Ordered by: MORIAH MAGANA MD Report #: [id number] Location: [facility] Room/Bed: [facility] [place][note 2] Procedure: [id number] DX/CHEST XRAY LINE PLACEMENT Exam Date: 04/17/18 Exam Time: 1810 REPORT STATUS: Signed EXAM: CHEST XRAY LINE PLACEMENT, AP 1 view INDICATION: PICC placement COMPARISON: None FINDINGS: LINES/TUBES: Distal aspect of a left approach PICC terminates in expected location of the distal superior vena cava. LUNGS: No consolidations or edema. PLEURA: No effusions or pneumothorax. HEART AND MEDIASTINUM: Normal size and contour. BONES AND SOFT TISSUES: No acute findings. IMPRESSION: Distal aspect of a left approach PICC terminates in expected location of the distal superior vena cava. Signed by: Dr. Erika Colorado M.D. on 04/17/2018 8:13 PM Dictated By: ERIKA COLORADO MD 12 Transcribed By: ANA MARIA on 04/17/182012 COPY TO: MORIAH MAGANA MD
[2018-04-30 21:39] LABS: BASOPHILS # (AUTO) 0.1 (0.0-0.1); BASOPHILS % 0.7 % (0.0-1.0); EOSINOPHILS # (AUTO) 0.3 (0.0-0.4); EOSINOPHILS % 3.5 % (0.0-6.0); HEMATOCRIT 27.8 % (34.2-44.1); HEMOGLOBIN 8.6 g/dL (12.0-16.0); LYMPHOCYTES # (AUTO) 1.2 (1.0-3.2); LYMPHOCYTES % 13.1 % (18.0-39.1); MEAN CORPUSCULAR HEMOGLOBIN 25.3 pg (28-32); MEAN CORPUSCULAR HGB CONC 30.9 g/dL (31-35); MEAN CORPUSCULAR VOLUME 81.8 fL (81-99); MONOCYTES # (AUTO) 0.8 (0.2-0.8); MONOCYTES % 8.2 % (4.4-11.3); NEUTROPHILS # (AUTO) 6.8 (2.1-6.9); NEUTROPHILS % 74.3 % (38.7-80.0); PLATELET COUNT 371 x10e3/uL (140-360); RED CELL DISTRIBUTION WIDTH 14.6 % (11.7-14.4)
[2018-04-30 21:50] LABS: INR 1.06; PROTHROMBIN TIME 14.8 seconds (11.9-14.5)
[2018-04-30 21:51] LABS: PARTIAL THROMBOPLASTIN TIME 37.5 seconds (23.8-35.5)
[2018-04-30 21:58] LABS: ALBUMIN 2.6 g/dL (3.5-5.0); ALBUMIN/GLOBULIN RATIO 0.5 (0.8-2.0); ANION GAP 15.7 mmol/L (8-16); CREATININE, SERUM 6.6 mg/dL (0.57-1.11); MAGNESIUM 1.8 MG/DL (1.3-2.1)
[2018-04-30 22:12] LABS: POTASSIUM 6.7 mmol/L (3.5-5.1)
[2018-04-30] MEDS ORDERED: DEXTROSE 50% SYRINGE 50 ML IV STA (22:12)
[2018-04-30] MEDS ORDERED: INSULIN REGULAR, HUMAN 100 UNIT/1 ML 3ML VIAL IV STA (22:12)
[2018-04-30] MEDS ORDERED: SODIUM BICARBONATE 8.4% INJ 50 ML SYR IV STA (22:12)
[2018-04-30] MEDS ORDERED: SODIUM CHLORIDE 0.9% 500ML 500 ML IV ONE (22:15)
[2018-04-30 22:18] LABS: BILIRUBIN,URINE NEGATIVE (NEGATIVE); CLARITY,URINE CLEAR (CLEAR); COLOR,URINE STRAW (YELLOW); KETONES,URINE NEGATIVE (NEGATIVE); LEUKOCYTE ESTERASE ,URINE NEGATIVE (NEGATIVE); NITRITE,URINE NEGATIVE (NEGATIVE); PROTEIN,URINE DIPSTICK NEGATIVE (NEGATIVE); URINE UROBILINOGEN 0.2 mg/dL (0.2 - 1)
[2018-04-30 22:19] LABS: BACTERIA,URINE FEW /HPF; EPITHELIAL CELLS,URINE FEW /LPF; RBC,URINE 0-5 /HPF (0-5); WBC,URINE (MAN) 0-5 /HPF (0-5)
[2018-04-30] MEDS ORDERED: SOD POLYSTYRENE SULFONATE SUSP 15 GM/60 ML BTL PO STA (22:27)
[2018-04-30] MEDS ORDERED: LACTULOSE SYRUP 20 GM/30 ML UDC PO STA (22:27)
[2018-04-30] MEDS ORDERED: CALCIUM GLUCONATE 10% INJ 9.3 MEQ in SODIUM CHLORIDE 0.9% 100 ML 100 ML IV ONE (22:30)
[2018-04-30] MEDS ORDERED: CALCIUM GLUCONATE 10% INJ 0.465 MEQ/ML VIAL ONE (22:38)
[2018-04-30] MEDS ORDERED: SODIUM CHLORIDE 0.9% 50ML 50 ML ONE (22:39)
[2018-05-01] VITALS (26 sets, daily range): BP systolic 119–184; BP diastolic 65–90
[2018-05-01] MEDS ORDERED: MORPHINE SULFATE 2 MG/ML SYR IV PRN (00:30)
[2018-05-01] MEDS: ONDANSETRON HCL INJ 2 MG/ML VIAL IV PRN ×2 (00:33→19:50)
[2018-05-01] MEDS ORDERED: MORPHINE SULFATE INJ 4 MG/ML INJ ONE (00:37)
[2018-05-01] MEDS ORDERED: FUROSEMIDE40 MG PO (01:41)
[2018-05-01] MEDS ORDERED: BENICAR20 MG PO (01:41)
--- NOTE | 2018-05-01 02:05 | NUR ---
Received patient hemodynamically stable, due for dialysis, no complaints raised, khmer speaking, daughter with her
--- NOTE | 2018-05-01 02:14 | NUR ---
pt transported via bed to icu c cardiac monitor technician in place. dialysis nurse arrived to icu for hd.
[2018-05-01] MEDS ORDERED: SODIUM CHLORIDE 0.9% 1000ML 2,000 ML ONE (02:16)
[2018-05-01] MEDS ORDERED: MANNITOL 25% 12.5GM/50ML 100 ML ONE (02:18)
--- NOTE | 2018-05-01 02:47 | NUR ---
Dialysis started as scheduled, patient calm and stable , on close monitoring
[2018-05-01] MEDS ORDERED: HEPARIN SOD (PORCINE) 1000 UNIT/ML SDV ONE (04:32)
--- NOTE | 2018-05-01 05:47 | NUR ---
Dialysis ended well , patient remains stable and calm, no complaints raised
[2018-05-01 06:57] LABS: BASOPHILS # (AUTO) 0.1 (0.0-0.1); BASOPHILS % 0.8 % (0.0-1.0); EOSINOPHILS # (AUTO) 0.3 (0.0-0.4); EOSINOPHILS % 4.4 % (0.0-6.0); HEMATOCRIT 23.8 % (34.2-44.1); HEMOGLOBIN 7.7 g/dL (12.0-16.0); LYMPHOCYTES # (AUTO) 1.2 (1.0-3.2); LYMPHOCYTES % 17.5 % (18.0-39.1); MEAN CORPUSCULAR HEMOGLOBIN 25.5 pg (28-32); MEAN CORPUSCULAR HGB CONC 32.4 g/dL (31-35); MEAN CORPUSCULAR VOLUME 78.8 fL (81-99); MONOCYTES # (AUTO) 0.8 (0.2-0.8); MONOCYTES % 11.6 % (4.4-11.3); NEUTROPHILS # (AUTO) 4.3 (2.1-6.9); NEUTROPHILS % 65.5 % (38.7-80.0); PLATELET COUNT 313 x10e3/uL (140-360); RED BLOOD COUNT 3.02 x10e6/uL (3.6-5.1); RED CELL DISTRIBUTION WIDTH 14.5 % (11.7-14.4)
--- NOTE | 2018-05-01 07:08 | NUR ---
patient handed over hemodynamically stable
[2018-05-01 07:17] LABS: ALBUMIN 2.3 g/dL (3.5-5.0); ALBUMIN/GLOBULIN RATIO 0.5 (0.8-2.0); CALCIUM 8.4 mg/dL (8.4-10.2); CREATININE, SERUM 3.86 mg/dL (0.57-1.11)
--- NOTE | 2018-05-01 12:50 | History and Physical ---
CHIEF COMPLAINT: Acute renal failure. HPI: Ms. Ring is a 58-year-old female, who was discharged on April 22, 2018. 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 She was evaluated by Dr. Chung from orthopedic group and no intervention at this point was recommended. Dr. Church evaluated the patient and patient was discharged to follow up with Dr. Church for outpatient IV antibiotics. Blood cultures grew out coagulase-negative staph in one bottle and hence, an echo was done and no vegetations were seen. She was at Dr. Church's office and receiving antibiotics and she was found to have creatinine of 6.6 whereas she was discharged with normal creatinine and it was presumed that the renal failure is due to vancomycin as she was getting vancomycin at Dr. Church's office. She is currently denying any complaints of chest pain or shortness of breath. She has some discomfort in her lower abdominal area where there was a reported abscess. Her CT, which was done on 04/19/2018, showed pubic symphysis arthritis, worrisome for septic arthropathy and adjacent osteomyelitis of the pubic bones. Soft tissue abscess within the right adductor longus muscle was also found at that time. Surgery was consulted and Dr. Feldman evaluated the patient also during this last stay and he did not recommend any surgical intervention. IR evaluated the patient and percutaneous drainage of the right thigh intramuscular abscess was done during last admission. REVIEW OF SYSTEMS GENERAL: Denies any fevers or chills. HEAD: Denies any head trauma. ENT: Denies any earache. CVS: Denies any chest pain. RESPIRATORY: Denies any shortness of breath. GI: Denies any nausea or vomiting. The rest of the review of systems are negative except as in HPI. PAST MEDICAL HISTORY: Hypertension and diabetes. SURGICAL HISTORY: . FAMILY AND SOCIAL HISTORY: She does not smoke and does not drink. PHYSICAL EXAMINATION VITAL SIGNS: Temperature 98.4, pulse of 70, blood pressure 139/67, respiratory rate of 18, and O2 sat 93%. HEENT: Head atraumatic, normocephalic. NECK: Supple. CHEST: Clear to auscultation bilaterally. No wheezing. ABDOMEN: Soft. I have examined the lower abdominal area. There is no visible discharge or swelling NEUROLOGIC: She is awake and alert. LABS: White count of 6000, hemoglobin 7.7, and platelets 313. Chemistry: Sodium 142, potassium 4.0, chloride 104, BUN 24, creatinine 3.86. BUN was 47 and creatinine 6.60 yesterday with a potassium of 6.7. ASSESSMENT: Ms. Ring is a 58-year-old female. She was sent to the emergency room with acute kidney injury due to vancomycin. Nephrology was consulted from the ER and Dr. Atkinson was consulted. Hemodialysis catheter was placed and patient underwent hemodialysis. CURRENT PROBLEMS 1. Pubic symphysis, osteomyelitis and history of abscess, status post drainage almost a week and a half ago, receiving intravenous antibiotics at Dr. Church's office. 2. Acute kidney injury, likely due to antibiotics. 3. Diabetes. 4. Hypertension. PLAN 1. Continue the patient on hemodialysis per nephrology recommendation. Resume home medications. Consult Dr. Farnsworth for diabetic management. Patient now has renal failure and may need insulin instead of metformin. 2. ID consult by Dr. Church for antibiotics choices. 3. Nephrology consult. This was discussed with patient's daughter at bedside. Critical care time spent 50 minutes. Job#: [id number] OLIVIA
--- NOTE | 2018-05-01 13:46 | Consultation ---
DATE OF CONSULTATION: NO DICTATION (00:06) Job#: [id number] CASSI
[2018-05-01] MEDS ORDERED: DAPTOMYCIN 450 MG in SODIUM CHLORIDE 0.9% 100 ML IV SCH (15:15)
[2018-05-01] MEDS: INSULIN LISPRO 100 UNIT/1 ML 3ML VIAL SQ SCH ×2 (16:22→20:57)
--- NOTE | 2018-05-01 16:35 | NUR ---
notified [facility] to schedule patient for HD tomorrow am.
--- NOTE | 2018-05-01 16:55 | Consultation ---
DATE OF CONSULTATION: REASON FOR CONSULTATION: Osteomyelitis of the pubic symphysis and acute kidney injury. HISTORY OF PRESENT ILLNESS: This is a well known to me 58-year-old female. She was recently in the hospital where she was diagnosed with osteomyelitis of the pubic symphysis. Cultures showed coagulase-negative staph. Patient was treated with vancomycin with improvement. She was observed and then discharged home after being here for a few days. The patient was getting vancomycin as an outpatient with weekly lab and the patient was noted to have edema. Repeat creatinine was elevated at 6. Patient was called then to come to the hospital where she is being admitted. There was no fever, no chills. She was fatigued. The patient was admitted. She underwent dialysis. She is currently alert and oriented. No complaints. PAST MEDICAL HISTORY: Diabetes mellitus. PAST SURGICAL HISTORY: Tubal ligation, . Recently, she was diagnosed osteomyelitis of the pubis that is happened after she fell and sustained bruising and probably got infected. REVIEW OF SYSTEMS: At present time; HEENT: Negative. PULMONARY: Negative. CARDIAC: Negative. : Negative. SKIN: There is no rash. LABORATORY DATA: Reviewed. Her white count 9.17, hemoglobin 8.6, hematocrit 27, her platelet of 371. Sodium 133, potassium was 6.7 on admission, today 4.0. Her creatinine was 6.6, came down to 3.86. Liver enzymes within normal limits. PHYSICAL EXAMINATION GENERAL: She is currently alert and oriented, does not seem to be in acute distress. VITALS: Stable, currently afebrile. HEENT: She is not icteric. NECK: Supple. CHEST: Clear. HEART: S1, S2. No murmur. ABDOMEN: Soft. Bowel sounds present. No tenderness. EXTREMITIES: Edema. IMPRESSION AND PLAN 1. Acute kidney injury, now on dialysis, doing better. 2. Osteomyelitis of the pubic area. Will put her on daptomycin in the meantime. Will follow with you. 3. Diabetes. Thank you for asking me to see this patient. Discussed with family. Job#: [id number] CASSI
[2018-05-01 17:00] LABS: FREE T4 (FREE THYROXINE) 1.06 ng/dL (0.9-1.8); THYROID STIMULATING HORMONE 6.954 uIU/mL (0.350-4.940)
--- NOTE | 2018-05-01 17:01 | NUR ---
Nutrition Screen Note RD Recommendation for Physician: continue diet as ordered Plan of Care: RD following, monitoring for adequacy and tolerance Nutrition reason for involvement: MD Consult Primary Diagnose(s):Acute renal failure, hyperkalemia Ht:61 in Wt:170lbs BMI:32.1 kg/m2 IBW:105lbs RD Assessment:(05/01/2018) Initial encounter with patient. Son was present at the time of visit and translated as pt was Korean Speaking. Pt was eating food brought by Son. 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 Pt does not like " hospital" food. No significant wt changes or any difficulty chewing or swallowing. Current Diet: Renal diet Malnutrition Evaluation (05/01/2018) The patient does not meet criteria for a specified degree of malnutrition at this time. Will re-evaluate at follow-up as appropriate. Diet Education Needs Assessment: Diet education not indicated. Diet Adequacy: Meeting calorie needs, Meeting protein needs, Meeting fluid needs Tolerance: Tolerating PO Nutrition Care Level: tony Saldana RD, LD, [facility]
--- NOTE | 2018-05-01 17:38 | Consultation ---
DATE OF CONSULTATION: May 01, 2018 HISTORY OF PRESENT ILLNESS: A 58-year-old female presented to the emergency room with history of osteomyelitis of the pubic symphysis versus abscess, seen by Sheldon and Dr. Church, was on IV vancomycin at home. She is currently awake and alert. Does not appear septic. Denies shortness of breath, nausea, vomiting, or headache. Has history of type 2 diabetes with possible end organ damage and neuropathy, history of hypertension, prior . SOCIAL HISTORY: Does not smoke or drink. CURRENT REVIEW OF SYSTEMS: Denies shortness of breath, nausea, vomiting, headache, fever, or chills. LABORATORY TEST: Shows life-threatening hyperkalemia, potassium 6.7, bicarbonate 17, creatinine 6.6, glucose 207. HOME MEDICATIONS: Not reconciled yet. Vancomycin has been discontinued. Urine culture blood cultures have been sent. Patient had an emergency hemodialysis catheter placed, dialysis nurse on standby to initiate dialysis. Risks and benefits of dialysis and reason for dialysis explained to the patient and family members. This is a life-threatening hyperkalemia with ATN. PHYSICAL EXAMINATION GENERAL: Awake and alert, lying supine. No apparent distress. VITALS: Blood pressure 157/84, pulse rate 72, afebrile, oxygen saturation 96% on room air. HEAD AND NECK: Cornea clear. Oral mucosa moist. NECK: Veins flat. LUNGS: Relatively clear. HEART: S1, S2 audible. ABDOMEN: Otherwise soft, nontender. Detail abdominal examination not done. EXTREMITIES: Lower extremity, no edema. Baseline serum creatinine was 0.79 as of April 18, 2018. Previous cultures grew staph species coagulase negative on April 16. Otherwise blood cultures have consistently negative in the early part of April. IMPRESSION AND PLAN: Life-threatening hyperkalemia, acute tubular necrosis, and metabolic acidosis, etiology multifactorial. Emergent treatment for hyperkalemia given in the emergency room. Discuss with ER physician. She has been on Benicar at home, which I am going to stop and not renew. Antibiotic will be put on hold. Infectious disease to be consulted. Dialysis nurse on standby for dialysis. The etiology possibly vancomycin toxicity. Job#: [id number] CASSI
--- NOTE | 2018-05-01 19:34 | Diagnostic Imaging Report ---
EXAM: Renal Ultrasound INDICATION: antonio COMPARISON: CT abdomen and pelvis 04/19/2018 TECHNIQUE: Transverse and longitudinal images of the kidneys and bladder were obtained. FINDINGS: Right Kidney: Size: 11.5 x 5.3 x 6.7 cm Echogenicity: Increased Parenchymal thickness: Normal Collecting system: No hydronephrosis Stones: None Cyst/Mass: None Left Kidney: Size: 11.4 x 5.2 x 5 01 cm Echogenicity: Increased Parenchymal thickness: Normal Collecting system: No hydronephrosis Stones: None Cyst/Mass: None Bladder: Normal IMPRESSION: Mildly echogenic kidneys consistent medical renal disease. Signed by: Dr. Justin Adkins M.D. on 05/01/2018 7:30 PM
--- NOTE | 2018-05-01 19:35 | Consultation ---
DATE OF CONSULTATION: May 01, 2018 ENDOCRINE CONSULTATION PATIENT OF: Dr. Rangel. Thank you very much for referring this patient. HISTORY OF PRESENT ILLNESS: This is a 58-year-old lady, who is referred to me for evaluation of uncontrolled diabetes mellitus. Patient reportedly is a known diabetic for almost 15 years and takes metformin at home. She was doing relatively alright when she got osteomyelitis and abscess in the pubic symphysis area. She was put on vancomycin and as a result of that, she had [id number] renal failure and is presently on dialysis now. At the time of admission, her potassium was significantly elevated at 6.7 and BUN and creatinine was 47 and 6.6. Patient also has history of hyperlipidemia and hypertension. Patient has been started on hemodialysis also. PHYSICAL EXAMINATION GENERAL: Today, the patient is alert, awake, and a little bit apprehensive. She is moderately overweight. VITAL SIGNS: Heart rate is around 78, blood pressure is 130/80 mmHg. HEENT: Essentially unremarkable. Thyroid is palpable. Clinically, she is near euthyroid. CHEST: Bilateral vesicular breathing. No rales. CARDIOVASCULAR: First and second heart sounds. There is no third or fourth heart sound. Ejection murmur of grade 2/6. ABDOMEN: Patient has marked tenderness in the lower abdomen. LABS: Her blood sugars have been in the ranges of 207 to 296. CLINICAL IMPRESSION 1. [id number] renal failure, on hemodialysis now. 2. Diabetes mellitus type 2 with complications. 3. Osteomyelitis of the pubic symphysis. 4. Hypertension. 5. Hyperlipidemia. PLAN: The plan at this time is to do a hemoglobin A1c, thyroid function tests, put her on Levemir insulin once a day and the sliding scale insulin. Thanks again for referring this patient. I will be following this patient with you. Job#: [id number] ELI
--- NOTE | 2018-05-01 20:31 | NUR ---
Results of renal US read back to Dr. Atkinson. No new orders received. Received new orders from Dr. Rangel regarding BP.
[2018-05-01] MEDS: HYDRALAZINE HCL 25 MG TAB PO SCH (20:57)
[2018-05-01] MEDS: ATORVASTATIN 20 MG TAB PO SCH (20:57)
[2018-05-01] MEDS: INSULIN DETEMIR 100 UNIT/ML PEN SQ SCH (21:00)
[2018-05-02] VITALS (26 sets, daily range): BP systolic 112–176; BP diastolic 68–93
[2018-05-02 00:37] LABS: CREATININE,URINE RANDOM 36.21 mg/dL (47-110); TOTAL PROTEIN, URINE 20.3 mg/dL (1-14)
[2018-05-02 04:14] LABS: BASOPHILS # (AUTO) 0.1 (0.0-0.1); BASOPHILS % 0.8 % (0.0-1.0); EOSINOPHILS # (AUTO) 0.3 (0.0-0.4); EOSINOPHILS % 4.1 % (0.0-6.0); HEMATOCRIT 25.2 % (34.2-44.1); HEMOGLOBIN 7.8 g/dL (12.0-16.0); LYMPHOCYTES # (AUTO) 1.1 (1.0-3.2); LYMPHOCYTES % 14.9 % (18.0-39.1); MEAN CORPUSCULAR HEMOGLOBIN 24.9 pg (28-32); MEAN CORPUSCULAR VOLUME 80.5 fL (81-99); MONOCYTES # (AUTO) 0.8 (0.2-0.8); MONOCYTES % 10.6 % (4.4-11.3); NEUTROPHILS # (AUTO) 5.1 (2.1-6.9); NEUTROPHILS % 69.3 % (38.7-80.0); PLATELET COUNT 318 x10e3/uL (140-360); RED BLOOD COUNT 3.13 x10e6/uL (3.6-5.1); RED CELL DISTRIBUTION WIDTH 14.8 % (11.7-14.4)
[2018-05-02 04:34] LABS: ALBUMIN 2.2 g/dL (3.5-5.0); ALBUMIN/GLOBULIN RATIO 0.5 (0.8-2.0); ANION GAP 14.9 mmol/L (8-16); CALCIUM 8.4 mg/dL (8.4-10.2); CREATININE, SERUM 4.78 mg/dL (0.57-1.11); POTASSIUM 4.9 mmol/L (3.5-5.1)
[2018-05-02] MEDS: INSULIN LISPRO 100 UNIT/1 ML 3ML VIAL SQ SCH ×4 (07:30→21:00)
[2018-05-02] MEDS ORDERED: OLMESARTAN 20 MG TAB PO SCH (09:00)
[2018-05-02] MEDS: HYDRALAZINE HCL 25 MG TAB PO SCH ×2 (12:47→18:54)
[2018-05-02] MEDS ORDERED: SODIUM CHLORIDE 0.9% 1000ML 1,000 ML ONE (13:01)
[2018-05-02] MEDS ORDERED: HEPARIN SOD (PORCINE) 1000 UNIT/ML SDV ONE (13:01)
[2018-05-02] MEDS ORDERED: MORPHINE SULFATE INJ 4 MG/ML INJ IV PRN (13:15)
--- NOTE | 2018-05-02 17:21 | NUR ---
patient refuses cafeteria food trays. she reports that the smell makes her nauseous. family brings her outside food
--- NOTE | 2018-05-02 18:00 | NUR ---
tolerated 3L of fluid removal with HD Addendum: 05/02/18 at 1801 by Rachel Carrillo RN Amended: Links added.
[2018-05-02] MEDS: INSULIN DETEMIR 100 UNIT/ML PEN SQ SCH (21:00)
[2018-05-02] MEDS: ONDANSETRON HCL INJ 2 MG/ML VIAL IV PRN (21:27)
[2018-05-02] MEDS: ATORVASTATIN 20 MG TAB PO SCH (22:00)
[2018-05-03] VITALS (12 sets, daily range): BP systolic 141–171; BP diastolic 61–96
[2018-05-03 04:29] LABS: BASOPHILS # (AUTO) 0.1 (0.0-0.1); BASOPHILS % 0.7 % (0.0-1.0); EOSINOPHILS # (AUTO) 0.3 (0.0-0.4); EOSINOPHILS % 3.8 % (0.0-6.0); HEMATOCRIT 27.4 % (34.2-44.1); HEMOGLOBIN 8.7 g/dL (12.0-16.0); LYMPHOCYTES % 13.2 % (18.0-39.1); MEAN CORPUSCULAR HEMOGLOBIN 25.4 pg (28-32); MEAN CORPUSCULAR HGB CONC 31.8 g/dL (31-35); MEAN CORPUSCULAR VOLUME 80.1 fL (81-99); MONOCYTES # (AUTO) 0.9 (0.2-0.8); MONOCYTES % 11.6 % (4.4-11.3); NEUTROPHILS # (AUTO) 5.2 (2.1-6.9); NEUTROPHILS % 70.4 % (38.7-80.0); PLATELET COUNT 318 x10e3/uL (140-360); RED BLOOD COUNT 3.42 x10e6/uL (3.6-5.1); RED CELL DISTRIBUTION WIDTH 14.7 % (11.7-14.4)
[2018-05-03 04:45] LABS: CALCIUM 8.7 mg/dL (8.4-10.2); CREATININE, SERUM 3.8 mg/dL (0.57-1.11); VANCOMYCIN,RANDOM 56.9 ug/mL
[2018-05-03] MEDS: LEVOTHYROXINE SODIUM 50 MCG TAB PO SCH (06:23)
--- NOTE | 2018-05-03 07:12 | Diagnostic Imaging Report ---
This report includes an Addendum and supersedes previous reports for this exam. PROCEDURE:NON-TUNNELLED CVC CATH PLACMNT COMPARISON:None. INDICATIONS: NATALIA COMPLICATIONS: None MEDICATIONS: 1% lidocaine BLOOD LOSS: Less than 2 cc PROCEDURE: Ultrasound was utilized for venous access. Local anesthesia with 1% Xylocaine was accomplished. Puncture of the right internal jugular vein with a 21 gauge skinny needle was performed followed by placement of a 0.018 inch wire. Micropuncture sheath was then placed over the wire utilizing fluoroscopic guidance. A 0.035 inch Amplatz Super Stiff wire was then placed through the micropuncture sheath. Dilatation with a 7 and 12 Djiboutian dilator was accomplished. A Bard 13 Djiboutian 15 cm long temporary Trialysis catheter was then placed over the wire. Tip localized at the cavoatrial junction. Each port flushes and aspirates adequately. Catheter was secured to the skin with 3-0 Ethilon. Fluoroscopy time: 0.2 minutes Total dose: 8.01 mGy CONCLUSION: Successful placement of a temporary hemodialysis catheter utilizing ultrasound for venous access and fluoroscopy for placement. Fitz Marroquin D.O. Dictated by: Fitz Marroquin D.O. on 05/03/2018 at 7:22 Electronically approved by: Fitz Marroquin D.O. on 05/03/2018 at 7:22 ADDENDUM: Maximal sterile barrier technique was performed. Fitz Marroquin D.O. Dictated by: Fitz Marroquin D.O. on 05/12/2018 at 8:10 Electronically approved by: Fitz Marroquin D.O. on 05/12/2018 at 8:10
--- NOTE | 2018-05-03 07:14 | Diagnostic Imaging Report ---
PROCEDURE:US GUIDANCE FOR VASCULAR ACCESS COMPARISON:None. INDICATIONS:NATALIA FINDINGS:Ultrasound evaluation of potential access sites was performed. After successfully identifying a patent vessel, US guidance was used to puncture the right internal jugular vein. A permanent recording was created for the patient record. CONCLUSION:Successful ultrasound access for placement of a temporary hemodialysis catheter. Fitz Marroquin D.O. Dictated by: Fitz Marroquin D.O. on 05/03/2018 at 7:24 Electronically approved by: Fitz Marroquin D.O. on 05/03/2018 at 7:24
[2018-05-03] MEDS: INSULIN LISPRO 100 UNIT/1 ML 3ML VIAL SQ SCH ×4 (07:24→21:34)
[2018-05-03] MEDS ORDERED: ACETAMINOPHEN 325 MG TAB PO PRN (08:30)
[2018-05-03] MEDS ORDERED: LEVOTHYROXINE SODIUM 100 MCG/VIAL IV ONE (09:00)
[2018-05-03] MEDS ORDERED: MORPHINE SULFATE INJ 4 MG/ML INJ IV PRN (09:15)
[2018-05-03] MEDS: HEPARIN SOD (PORCINE) 5,000 UNIT/ML VIAL SC SCH ×2 (09:23→21:20)
[2018-05-03] MEDS: PANTOPRAZOLE SOD 40 MG TABEC PO SCH (09:25)
[2018-05-03] MEDS: DOCUSATE SODIUM 100 MG CAP PO SCH ×2 (09:26→16:40)
[2018-05-03] MEDS: HYDRALAZINE HCL 25 MG TAB PO SCH ×2 (09:26→16:40)
[2018-05-03] MEDS: ONDANSETRON HCL INJ 2 MG/ML VIAL IV PRN ×2 (12:15→16:15)
[2018-05-03] MEDS ORDERED: HEPARIN SOD (PORCINE) 1000 UNIT/ML SDV IV PRN (12:45)
[2018-05-03] MEDS ORDERED: SODIUM CHLORIDE 0.9% 1000ML 2,000 ML IV PRN (12:45)
--- NOTE | 2018-05-03 13:14 | Diagnostic Imaging Report ---
RADIOGRAPH(S) OF THE ABDOMEN AND PELVIS, 1 view(s) HISTORY: Nausea, acute renal failure COMPARISON: CT of the abdomen and pelvis April 19, 2018 FINDINGS: Overlying monitoring leads. No specific evidence of obstruction or ileus. No definite urinary tract calcification. The bones are partially obscured by stool and overlying bowel gas. Irregularity and mild widening of the pubic symphysis. IMPRESSION: 1. Nonobstructive bowel gas pattern. 2. Findings remain concerning for the sequela of septic pubic symphysis arthropathy. Signed by: Dr. Harvey Flores D.O., M.M.M. on 05/03/2018 1:10 PM
--- NOTE | 2018-05-03 18:09 | NUR ---
daughter, carlos, spoke to dr. aleman on the phone
--- NOTE | 2018-05-03 19:15 | NUR ---
Report received. Assumed care. Assessment done. See interventions.
[2018-05-03] MEDS: INSULIN DETEMIR 100 UNIT/ML PEN SQ SCH (21:20)
[2018-05-03] MEDS: ATORVASTATIN 20 MG TAB PO SCH (21:34)
--- NOTE | 2018-05-03 22:00 | NUR ---
report given by Hilda HOLGUIN . ptt aaox3 easy to arouse rom sleep denie pain and resp distress, pt on bipap uses continously, denies pain and discomforts at this time,
--- NOTE | 2018-05-03 22:00 | NUR ---
received report on pt aaox3, breathing kurt and unlabord, denies pain daurghter at bedside, Radha,(nickname) pt comfortable
[2018-05-04 04:00] VITALS: BP 138/73
--- NOTE | 2018-05-04 04:00 | NUR ---
no problems sleeping well with eyes closed, reathig even and unlabored. denies any discomforts
--- NOTE | 2018-05-04 04:00 | NUR ---
no change in pt's status hob elevated, turns and repositioned for comfort measures,
[2018-05-04] MEDS: LEVOTHYROXINE SODIUM 50 MCG TAB PO SCH (07:09)
--- NOTE | 2018-05-04 07:15 | NUR ---
labs drawn for dialysis purposes. Assisted pt up oob to bathroom.
[2018-05-04] MEDS: INSULIN LISPRO 100 UNIT/1 ML 3ML VIAL SQ SCH ×4 (07:26→21:50)
--- NOTE | 2018-05-04 07:32 | NUR ---
reported of to ketan cottrell, no change in pt's status.hob elevate dr. paulino here to assess pt's status
[2018-05-04 08:10] LABS: BASOPHILS # (AUTO) 0.1 (0.0-0.1); BASOPHILS % 0.8 % (0.0-1.0); EOSINOPHILS # (AUTO) 0.4 (0.0-0.4); EOSINOPHILS % 4.5 % (0.0-6.0); HEMATOCRIT 27.4 % (34.2-44.1); HEMOGLOBIN 8.6 g/dL (12.0-16.0); LYMPHOCYTES # (AUTO) 1.3 (1.0-3.2); LYMPHOCYTES % 15.8 % (18.0-39.1); MEAN CORPUSCULAR HEMOGLOBIN 25.5 pg (28-32); MEAN CORPUSCULAR HGB CONC 31.4 g/dL (31-35); MEAN CORPUSCULAR VOLUME 81.3 fL (81-99); MONOCYTES # (AUTO) 0.9 (0.2-0.8); MONOCYTES % 11.6 % (4.4-11.3); NEUTROPHILS # (AUTO) 5.4 (2.1-6.9); NEUTROPHILS % 66.8 % (38.7-80.0); PLATELET COUNT 346 x10e3/uL (140-360); RED BLOOD COUNT 3.37 x10e6/uL (3.6-5.1); RED CELL DISTRIBUTION WIDTH 14.7 % (11.7-14.4)
[2018-05-04] MEDS: PANTOPRAZOLE SOD 40 MG TABEC PO SCH (08:17)
[2018-05-04] MEDS: DOCUSATE SODIUM 100 MG CAP PO SCH ×2 (08:17→16:59)
[2018-05-04] MEDS: HEPARIN SOD (PORCINE) 5,000 UNIT/ML VIAL SC SCH ×2 (08:18→21:50)
[2018-05-04] MEDS: HYDRALAZINE HCL 25 MG TAB PO SCH ×3 (08:19→21:30)
[2018-05-04 08:56] LABS: ANION GAP 13.6 mmol/L (8-16); CALCIUM 8.4 mg/dL (8.4-10.2); CREATININE, SERUM 3.02 mg/dL (0.57-1.11); POTASSIUM 3.6 mmol/L (3.5-5.1)
--- NOTE | 2018-05-04 09:30 | NUR ---
report given to harsha cottrell
--- NOTE | 2018-05-04 09:45 | NUR ---
vanc random added to [address] trinidad, level is 43, notified dr. trinidad, he states ok. HUSSEIN Tamayo states he would like another random level added to the morning labs tomorrow (12-19) if patient dialyzes today. Endorsed to EZIO Fernandez.
[2018-05-04 10:15] VITALS: BP 169/82
--- NOTE | 2018-05-04 10:20 | NUR ---
Pt received from ICU via wheelchair. Oriented to staff and surroundings. Emotional support given. Fall precautions maintained. Call muñoz within reach. Dressing change done to left upper arm PICC line. Trialysis catheter to right IJ intact. Will monitor
[2018-05-04 12:00] VITALS: BP 176/81
[2018-05-04] MEDS: ONDANSETRON HCL INJ 2 MG/ML VIAL IV PRN (12:54)
[2018-05-04] MEDS ORDERED: CLONIDINE HCL 0.1 MG TAB PO PRN (13:30)
[2018-05-04 16:00] VITALS: BP 164/74
[2018-05-04] MEDS: METOPROLOL SUCCINATE 25 MG TAB XL PO SCH (16:58)
--- NOTE | 2018-05-04 18:24 | NUR ---
Pt resting comfortably in bed. Plan for labs in am. Emotional support given. Will endorse to next shift
--- NOTE | 2018-05-04 19:08 | NUR ---
Patient visited in room during nursing rounds. Patient alert and oriented x3. Patient bilingual (Jamaican and Slovenian). Daughter at bedside visiting. Patient resting in bed. Call light within reach. Patient with Right IJ Trialysis and MURRAY PICC line. Patient ambulatory prn with standby assist. Will monitor pt closely.
--- NOTE | 2018-05-04 19:45 | NUR ---
Patient walking on the hallway using walker and being accompanied by daughter. Patient tolerating ambulation well.
[2018-05-04 20:00] VITALS: BP 180/88
[2018-05-04] MEDS: ATORVASTATIN 20 MG TAB PO SCH (21:30)
--- NOTE | 2018-05-04 21:30 | NUR ---
Patient arrived to unit via wheelchair from ED as new admit. Patient alert and oriented x3. Ambulatory with standby assist. Patient denies any pain or discomfort at this time. BP elevated at 183/86. Dr. Perez aware and requested for patient to have home meds (cardiac meds) tonight. Nurse (Haja) to medicate patient and will monitor pt closely. Addendum: 05/04/18 at 2351 by Haja Chen RN WRONG ENTRY.
[2018-05-04] MEDS: INSULIN DETEMIR 100 UNIT/ML PEN SQ SCH (21:51)
--- NOTE | 2018-05-04 22:23 | NUR ---
BP re-checked after pt received BP meds (Atenolol, Norvasc, Lisinopril, HCTZ). BP at this time was 177/78 and seem trending down. Will keep monitor BP of patient. Addendum: 05/04/18 at 2352 by Haja Chen RN WRONG ENTRY
[2018-05-05] VITALS (9 sets, daily range): BP systolic 95–176; BP diastolic 54–87
[2018-05-05 06:20] LABS: ALBUMIN 2.5 g/dL (3.5-5.0); ALBUMIN/GLOBULIN RATIO 0.6 (0.8-2.0); ANION GAP 13.2 mmol/L (8-16); CALCIUM 8.4 mg/dL (8.4-10.2); CREATININE, SERUM 3.96 mg/dL (0.57-1.11); POTASSIUM 3.2 mmol/L (3.5-5.1); VANCOMYCIN,RANDOM 41.2 ug/mL
[2018-05-05] MEDS: LEVOTHYROXINE SODIUM 50 MCG TAB PO SCH (06:30)
[2018-05-05] MEDS: PANTOPRAZOLE SOD 40 MG TABEC PO SCH (06:42)
--- NOTE | 2018-05-05 07:25 | NUR ---
PATIENT IN BED RESTING WITH EYES CLOSE, NO RESPIRATORY DISTRESS OBSERVED. RIGHT IJ WITH DRESSING INTACT. TELEMETRY BOX IN PLACE. BED IN LOWER POSITION, CALL LIGHT AT REACH.
[2018-05-05] MEDS: INSULIN LISPRO 100 UNIT/1 ML 3ML VIAL SQ SCH ×4 (07:30→20:59)
[2018-05-05] MEDS: HEPARIN SOD (PORCINE) 5,000 UNIT/ML VIAL SC SCH ×2 (09:00→21:23)
[2018-05-05] MEDS: DOCUSATE SODIUM 100 MG CAP PO SCH ×2 (09:13→17:00)
[2018-05-05] MEDS: METOPROLOL SUCCINATE 25 MG TAB XL PO SCH (09:13)
[2018-05-05] MEDS: HYDRALAZINE HCL 25 MG TAB PO SCH ×4 (09:13→21:10)
[2018-05-05] MEDS ORDERED: POTASSIUM CHLORIDE 20 MEQ TAB CR PO NR (10:46)
--- NOTE | 2018-05-05 11:36 | NUR ---
SPOKE WITH MD REGARDING ABNORMAL LAB RESULT. NEW ORDER RECEIVED AND IMPLEMENTED.
--- NOTE | 2018-05-05 15:39 | NUR ---
PATIENT IN BED RESTING WITH NO S/S OF PAIN OR DISCOMFORT. BED SIDE HEMODIALYSIS TREATMENT STARTED. ALL PERSONAL ITEMS CLOSE TO PATIENT, CALL LIGHT AT REACH.
[2018-05-05] MEDS ORDERED: METOPROLOL SUCCINATE 25 MG TAB XL PO SCH (16:00)
--- NOTE | 2018-05-05 19:15 | NUR ---
Received patient from day nurse, patient is stable, patient post dialysis, no complains. safety and fall precautions manatained as per hospital protocol: bed lowest position and locked, needed items beside bed and call muñoz placed within patient reach, patient instructed to use it to call nurses for any assistance needed, patient verbalized understanding.
[2018-05-05] MEDS: ATORVASTATIN 20 MG TAB PO SCH (21:10)
[2018-05-05] MEDS: INSULIN DETEMIR 100 UNIT/ML PEN SQ SCH (21:10)
[2018-05-06] VITALS (8 sets, daily range): BP systolic 164–190; BP diastolic 74–82
[2018-05-06] MEDS: LEVOTHYROXINE SODIUM 50 MCG TAB PO SCH (06:21)
--- NOTE | 2018-05-06 07:15 | NUR ---
patient endorsed to next shift for continuity of care.
--- NOTE | 2018-05-06 07:20 | NUR ---
PATIENT ASSISTED TO THE RESTROOM AND BACK TO BED. HAD A SMALL BM. BED IN LOWER POSITION, CALL LIGHT AT REACH.
[2018-05-06] MEDS: INSULIN LISPRO 100 UNIT/1 ML 3ML VIAL SQ SCH ×4 (07:30→21:00)
[2018-05-06] MEDS: PANTOPRAZOLE SOD 40 MG TABEC PO SCH (07:40)
[2018-05-06] MEDS: HYDRALAZINE HCL 25 MG TAB PO SCH ×2 (08:30→21:00)
[2018-05-06] MEDS: METOPROLOL SUCCINATE 25 MG TAB XL PO SCH (08:30)
[2018-05-06] MEDS: DOCUSATE SODIUM 100 MG CAP PO SCH ×2 (08:55→17:00)
[2018-05-06] MEDS: HEPARIN SOD (PORCINE) 5,000 UNIT/ML VIAL SC SCH ×2 (09:00→21:00)
--- NOTE | 2018-05-06 10:20 | NUR ---
PATIENT NOTED WITH NOSE BLEEDING, PRESSURE APPLIED FOR 5 MINUTES. MD NOTIFIED, HEPARIN HELD. NO MORE BLEEDING OBSERVED AT THIS TIME. WILL CONTINUE TO MONITOR.
--- NOTE | 2018-05-06 11:18 | NUR ---
CALL RECEIVED FROM TELEMETRY STAFF STATING THAT THE TELEMETRY BATTERY IS LOW. BATTERY REPLACED, PATIENT DENIED PAIN. IN BED WITH CALL LIGHT AT REACH.
--- NOTE | 2018-05-06 15:05 | NUR ---
PATIENT OUT OF BED TO CHAIR TALKING TO FAMILY MEMBERS VISITING, NO NOSE BLEEDING OBSERVED. CALL LIGHT AT REACH.
--- NOTE | 2018-05-06 19:10 | NUR ---
REPORT RECEIVED FROM OFF GOING NURSE, PT ALERT AND ORIENTED, SITTING AT BEDSIDE, NO DISTRESS NOTED, PT VISITING WITH FAMILY, DENIES NEEDS, CALL LIGHT IN REACH, INSTRUCTED TO CALL WITH NEEDS
[2018-05-06] MEDS: INSULIN DETEMIR 100 UNIT/ML PEN SQ SCH (21:00)
[2018-05-06] MEDS: ATORVASTATIN 20 MG TAB PO SCH (21:00)
--- NOTE | 2018-05-06 21:00 | NUR ---
MEDS ORDERED FOR DIALYSIS GIVEN TO DIALYSIS NURSE
--- NOTE | 2018-05-06 22:59 | NUR ---
PT CURRENTLY RECEIVING DIALYSIS, NURSE AT BEDSIDE, PT RESTING IN BED WITH EYES CLOSED,NO DISTRESS NOTED, CALL LIGHT IN REACH
[2018-05-07] VITALS (7 sets, daily range): BP systolic 147–178; BP diastolic 74–88
[2018-05-07] MEDS: LEVOTHYROXINE SODIUM 50 MCG TAB PO SCH (05:33)
--- NOTE | 2018-05-07 05:33 | NUR ---
PT RESTING IN BED ALERT AND ORIENTED, PT ASSISTED TO RESTROOM TO VOID, NO DISTRESS NOTED, ASSISTED BACK IN BED, DENIES NEEDS, CALL LIGHT IN REACH, INSTRUCTED TO CALL WITH NEEDS, TELEMETRY NOTED
[2018-05-07 05:44] LABS: BASOPHILS # (AUTO) 0.1 (0.0-0.1); BASOPHILS % 0.9 % (0.0-1.0); EOSINOPHILS # (AUTO) 0.4 (0.0-0.4); EOSINOPHILS % 4.9 % (0.0-6.0); HEMATOCRIT 25.8 % (34.2-44.1); HEMOGLOBIN 7.9 g/dL (12.0-16.0); LYMPHOCYTES # (AUTO) 1.3 (1.0-3.2); LYMPHOCYTES % 16.6 % (18.0-39.1); MEAN CORPUSCULAR HEMOGLOBIN 24.8 pg (28-32); MEAN CORPUSCULAR HGB CONC 30.6 g/dL (31-35); MEAN CORPUSCULAR VOLUME 81.1 fL (81-99); MONOCYTES # (AUTO) 0.7 (0.2-0.8); MONOCYTES % 9.2 % (4.4-11.3); NEUTROPHILS # (AUTO) 5.2 (2.1-6.9); NEUTROPHILS % 68.1 % (38.7-80.0); PLATELET COUNT 260 x10e3/uL (140-360); RED BLOOD COUNT 3.18 x10e6/uL (3.6-5.1)
[2018-05-07 06:13] LABS: ALANINE AMINOTRANSFERASE 6 IU/L (0-55); ALBUMIN 2.7 g/dL (3.5-5.0); ALBUMIN/GLOBULIN RATIO 0.6 (0.8-2.0); ALKALINE PHOSPHATASE 122 IU/L (40-150); ANION GAP 13.1 mmol/L (8-16); BLOOD UREA NITROGEN < 5 mg/dL (7-26); CALCIUM 8.3 mg/dL (8.4-10.2); CARBON DIOXIDE 27 mmol/L (22-29); CHLORIDE 99 mmol/L (98-107); CREATININE, SERUM 1.95 mg/dL (0.57-1.11); EST GLOMERULAR FILTRATION RATE 26 ML/MIN (60-); GLUCOSE 109 mg/dL (74-118); POTASSIUM 4.1 mmol/L (3.5-5.1); SODIUM 135 mmol/L (136-145)
[2018-05-07 06:15] LABS: INR 1.04; PROTHROMBIN TIME 14.5 seconds (11.9-14.5)
[2018-05-07 06:21] LABS: BUN/CREATININE RATIO 3 (6-25)
[2018-05-07] MEDS: INSULIN LISPRO 100 UNIT/1 ML 3ML VIAL SQ SCH ×4 (07:30→20:56)
--- NOTE | 2018-05-07 08:55 | NUR ---
Pt received resting in bed. Alert and oriented x3 but mostly Swedish speaking. Oriented to staff and surroundings. Emotional support given. Fall precautions maintained. Call muñoz within reach. Patent PICC line noted to left upper arm, and Trialysis catheter to right IJ intact. Pt for HD today, and all meds given as ordered. Will monitor
[2018-05-07] MEDS: ONDANSETRON HCL INJ 2 MG/ML VIAL IV PRN (08:56)
[2018-05-07] MEDS: DOCUSATE SODIUM 100 MG CAP PO SCH ×2 (09:20→16:41)
[2018-05-07] MEDS: HYDRALAZINE HCL 25 MG TAB PO SCH ×3 (09:20→20:53)
[2018-05-07] MEDS: PANTOPRAZOLE SOD 40 MG TABEC PO SCH (09:20)
[2018-05-07] MEDS: HEPARIN SOD (PORCINE) 5,000 UNIT/ML VIAL SC SCH ×2 (10:11→20:54)
[2018-05-07] MEDS: METOPROLOL SUCCINATE 25 MG TAB XL PO SCH (10:43)
[2018-05-07] MEDS: AMLODIPINE BESYLATE 5 MG TAB PO SCH (10:43)
--- NOTE | 2018-05-07 16:31 | NUR ---
Nutrition Screen Note RD Recommendation for Physician: -Continue renal diabetic diet as ordered -Consult RD for diet education if pt will be on long-term HD after d/c Plan of Care: RD following, monitoring for adequacy and tolerance Nutrition reason for involvement: Follow up Primary Diagnose(s):Acute renal failure, hyperkalemia Ht:61 in Wt:170lbs 05/01 ; 195lb 05/07 (inaccurate weight taken on admission?) BMI:32.1 kg/m2 IBW:105lbs RD Assessment: (05/07/2018) Chart reviewed. Pt was started on HD today. Pt was sleeping during my visit. Wolof speaking only. Spoke with RN regarding her PO intake. RN states pt doesnt like hospital foods and has been eating foods from home. No GI complains noted. No change in nutrition status. Will continue to monitor and follow. (05/01/2018) Initial encounter with patient. Son was present at the time of visit and translated as pt was Wolof Speaking. Pt was eating food brought by Son. 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 Pt does not like " hospital" food. No significant wt changes or any difficulty chewing or swallowing. Current Diet: Renal diet Malnutrition Evaluation (05/01/2018) The patient does not meet criteria for a specified degree of malnutrition at this time. Will re-evaluate at follow-up as appropriate. Diet Education Needs Assessment: Diet education not indicated. Diet Adequacy: Meeting calorie needs, Meeting protein needs, Meeting fluid needs Tolerance: Tolerating PO Nutrition Care Level: low Ayleen Jeffers, MS, RD, LD
--- NOTE | 2018-05-07 19:10 | NUR ---
REPORT RECEIVED FROM OFF GOING NURSE, PT RESTING IN BED ALERT AND ORIENTED,NO DISTRESS NOTED, BED LOCKED AND LOW, FAMILY AT BEDSIDE, DENIES NEEDS, INSTRUCTED TO CALL WITH NEEDS
[2018-05-07] MEDS ORDERED: FUROSEMIDE 40 MG TAB PO ONE (19:15)
[2018-05-07] MEDS: ATORVASTATIN 20 MG TAB PO SCH (20:53)
[2018-05-07] MEDS: INSULIN DETEMIR 100 UNIT/ML PEN SQ SCH (20:56)
[2018-05-08] VITALS (8 sets, daily range): BP systolic 135–152; BP diastolic 63–73
[2018-05-08] MEDS: LEVOTHYROXINE SODIUM 50 MCG TAB PO SCH (05:25)
--- NOTE | 2018-05-08 05:42 | NUR ---
PT RESTING IN BED WITH EYES CLOSED, PT OPENS EYES UPON APPROACH, NO DISTRESS NOTED, DENIES NEEDS, BED LOCKED AN LOW, CALL LIGHT IN REACH, TELEMETRY NOTED, FAMILY AT BED SIDE, INSTRUCTED TO CALL WITH NEEDS
[2018-05-08] MEDS: INSULIN LISPRO 100 UNIT/1 ML 3ML VIAL SQ SCH ×4 (07:30→21:00)
[2018-05-08 08:10] LABS: ALBUMIN 2.7 g/dL (3.5-5.0); ALBUMIN/GLOBULIN RATIO 0.6 (0.8-2.0); ANION GAP 13.8 mmol/L (8-16); CALCIUM 8.6 mg/dL (8.4-10.2); CREATININE, SERUM 2.24 mg/dL (0.57-1.11); POTASSIUM 4.8 mmol/L (3.5-5.1)
[2018-05-08] MEDS: PANTOPRAZOLE SOD 40 MG TABEC PO SCH (08:14)
[2018-05-08] MEDS: ONDANSETRON HCL INJ 2 MG/ML VIAL IV PRN ×2 (08:14→17:28)
[2018-05-08] MEDS: DOCUSATE SODIUM 100 MG CAP PO SCH ×2 (08:14→17:24)
[2018-05-08] MEDS: AMLODIPINE BESYLATE 5 MG TAB PO SCH (08:14)
[2018-05-08] MEDS: HYDRALAZINE HCL 25 MG TAB PO SCH ×3 (08:14→21:00)
[2018-05-08] MEDS: HEPARIN SOD (PORCINE) 5,000 UNIT/ML VIAL SC SCH ×2 (08:15→21:00)
[2018-05-08] MEDS: METOPROLOL SUCCINATE 25 MG TAB XL PO SCH (08:15)
--- NOTE | 2018-05-08 08:15 | NUR ---
Pt resting in bed with daughter at bedside. All meds given as ordered. Call muñoz within reach. Will monitor
--- NOTE | 2018-05-08 15:08 | Progress Note ---
DATE: SUBJECTIVE: Ms. Ring is doing better. There is no new complaint. She is still having some nausea and occasional vomiting. There is no more pain in the pelvic area. REVIEW OF SYSTEMS: Unremarkable. PHYSICAL EXAMINATION GENERAL: She is currently alert and oriented. Does not seem to be in acute distress. VITALS: Stable. Afebrile. HEENT: She does not appear icteric. NECK: Supple. CHEST: Clear. HEART: S1 and S2. No murmur. ABDOMEN: Soft. Bowel sounds present. No tenderness. EXTREMITIES: No edema. SKIN: No rash. IMPRESSION AND PLAN 1. Acute kidney injury secondary to dehydration and vancomycin toxicity, slowly improving. 2. Nausea and vomiting. Check amylase, lipase, and liver enzymes. Discussed with the patient. She is on treatment. We will give also Prilosec for now and Carafate. 3. Anemia. 4. 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 If she continued to improve, hopefully we can discharge home soon. Discussed with the family. Discussed with renal. Job#: [id number] CASSI
[2018-05-08] MEDS ORDERED: SUCRALFATE 1 GM/10 ML SUSP PO SCH (18:00)
--- NOTE | 2018-05-08 19:00 | NUR ---
REPORT RECEIVED FROM OFF GOING NURSE, PT RESTING IN BED ALERT AND ORIENTED, NO DISTRESS NOTED, DENIES NEEDS BED LOCKED AND LOW, CALL LIGHT IN REACH INSTRUCTED TO CALL WITH NEEDS, TELEMETRY NOTED, AT BEDSIDE
[2018-05-08] MEDS: INSULIN DETEMIR 100 UNIT/ML PEN SQ SCH (21:00)
[2018-05-08] MEDS: ATORVASTATIN 20 MG TAB PO SCH (21:00)
[2018-05-08] MEDS: SUCRALFATE 1 GM TAB PO SCH (21:00)
[2018-05-09] VITALS (8 sets, daily range): BP systolic 130–170; BP diastolic 60–79
[2018-05-09] MEDS ORDERED: SUCRALFATE 1 GM TAB PO SCH
[2018-05-09] MEDS: LEVOTHYROXINE SODIUM 50 MCG TAB PO SCH (06:00)
[2018-05-09 06:46] LABS: BASOPHILS # (AUTO) 0.1 (0.0-0.1); BASOPHILS % 0.9 % (0.0-1.0); EOSINOPHILS # (AUTO) 0.5 (0.0-0.4); EOSINOPHILS % 4.9 % (0.0-6.0); HEMATOCRIT 27.9 % (34.2-44.1); HEMOGLOBIN 8.7 g/dL (12.0-16.0); LYMPHOCYTES % 20.7 % (18.0-39.1); MEAN CORPUSCULAR HEMOGLOBIN 25.6 pg (28-32); MEAN CORPUSCULAR HGB CONC 31.2 g/dL (31-35); MEAN CORPUSCULAR VOLUME 82.1 fL (81-99); MONOCYTES # (AUTO) 1.1 (0.2-0.8); MONOCYTES % 11.5 % (4.4-11.3); NEUTROPHILS # (AUTO) 5.9 (2.1-6.9); NEUTROPHILS % 61.7 % (38.7-80.0); PLATELET COUNT 270 x10e3/uL (140-360); RED CELL DISTRIBUTION WIDTH 15.4 % (11.7-14.4)
--- NOTE | 2018-05-09 06:49 | NUR ---
PT RESTING IN BED ALERT AND ORIENTED, NO DISTRESS NOTED, HOB ELEVATED, AT BEDSIDE, BED LOCKED AND LOW, TELEMETRY NOTED, DENIES NEEDS, CALL LIGHT IN REACH, INSTRUCTED TO CALL WITH NEEDS
[2018-05-09 07:15] LABS: ALBUMIN 2.8 g/dL (3.5-5.0); ALBUMIN/GLOBULIN RATIO 0.6 (0.8-2.0); ANION GAP 13.5 mmol/L (8-16); BILIRUBIN,DIRECT 0.3 mg/dL (0.0-0.5); CALCIUM 8.8 mg/dL (8.4-10.2); CREATININE, SERUM 3.45 mg/dL (0.57-1.11); MAGNESIUM 1.9 MG/DL (1.3-2.1); POTASSIUM 3.5 mmol/L (3.5-5.1)
[2018-05-09] MEDS: INSULIN LISPRO 100 UNIT/1 ML 3ML VIAL SQ SCH ×4 (07:30→21:00)
[2018-05-09] MEDS: PANTOPRAZOLE SOD 40 MG TABEC PO SCH (08:42)
[2018-05-09] MEDS: SUCRALFATE 1 GM TAB PO SCH ×4 (08:42→20:56)
[2018-05-09] MEDS: HYDRALAZINE HCL 25 MG TAB PO SCH ×3 (08:43→20:56)
[2018-05-09] MEDS: DOCUSATE SODIUM 100 MG CAP PO SCH ×2 (08:43→17:05)
[2018-05-09] MEDS: AMLODIPINE BESYLATE 5 MG TAB PO SCH (08:43)
[2018-05-09] MEDS: METOPROLOL SUCCINATE 25 MG TAB XL PO SCH (08:43)
[2018-05-09] MEDS: HEPARIN SOD (PORCINE) 5,000 UNIT/ML VIAL SC SCH ×2 (08:44→20:59)
[2018-05-09 15:53] LABS: ANION GAP 14.5 mmol/L (8-16); CALCIUM 8.7 mg/dL (8.4-10.2); CREATININE, SERUM 3.73 mg/dL (0.57-1.11); POTASSIUM 3.5 mmol/L (3.5-5.1)
[2018-05-09] MEDS: ATORVASTATIN 20 MG TAB PO SCH (20:56)
[2018-05-09] MEDS: INSULIN DETEMIR 100 UNIT/ML PEN SQ SCH (22:21)
[2018-05-10] VITALS (8 sets, daily range): BP systolic 124–169; BP diastolic 58–79
[2018-05-10] MEDS: LEVOTHYROXINE SODIUM 50 MCG TAB PO SCH (05:27)
[2018-05-10 06:42] LABS: BASOPHILS # (AUTO) 0.1 (0.0-0.1); BASOPHILS % 1.1 % (0.0-1.0); EOSINOPHILS # (AUTO) 0.6 (0.0-0.4); EOSINOPHILS % 7.8 % (0.0-6.0); HEMATOCRIT 27.3 % (34.2-44.1); HEMOGLOBIN 8.4 g/dL (12.0-16.0); LYMPHOCYTES # (AUTO) 1.3 (1.0-3.2); LYMPHOCYTES % 17.8 % (18.0-39.1); MEAN CORPUSCULAR HEMOGLOBIN 25.3 pg (28-32); MEAN CORPUSCULAR HGB CONC 30.8 g/dL (31-35); MEAN CORPUSCULAR VOLUME 82.2 fL (81-99); MONOCYTES # (AUTO) 0.9 (0.2-0.8); NEUTROPHILS # (AUTO) 4.5 (2.1-6.9); NEUTROPHILS % 60.9 % (38.7-80.0); PLATELET COUNT 261 x10e3/uL (140-360); RED BLOOD COUNT 3.32 x10e6/uL (3.6-5.1); RED CELL DISTRIBUTION WIDTH 15.5 % (11.7-14.4)
[2018-05-10 06:59] LABS: ANION GAP 13.7 mmol/L (8-16); CALCIUM 8.4 mg/dL (8.4-10.2); CREATININE, SERUM 4.37 mg/dL (0.57-1.11); POTASSIUM 3.7 mmol/L (3.5-5.1)
[2018-05-10] MEDS: SUCRALFATE 1 GM TAB PO SCH ×4 (07:26→21:07)
[2018-05-10] MEDS: INSULIN LISPRO 100 UNIT/1 ML 3ML VIAL SQ SCH ×4 (07:30→21:09)
--- NOTE | 2018-05-10 07:30 | NUR ---
Pt received resting in bed with dialysis ongoing. Emotional support given. Call muñoz within reach Will monitor
[2018-05-10] MEDS: PANTOPRAZOLE SOD 40 MG TABEC PO SCH (11:49)
[2018-05-10] MEDS: HYDRALAZINE HCL 25 MG TAB PO SCH ×3 (11:49→21:08)
[2018-05-10] MEDS: METOPROLOL SUCCINATE 25 MG TAB XL PO SCH (11:50)
[2018-05-10] MEDS: DOCUSATE SODIUM 100 MG CAP PO SCH ×2 (11:50→16:45)
[2018-05-10] MEDS: AMLODIPINE BESYLATE 5 MG TAB PO SCH (11:50)
[2018-05-10] MEDS: ONDANSETRON HCL INJ 2 MG/ML VIAL IV PRN (11:50)
[2018-05-10] MEDS ORDERED: SODIUM CHLORIDE 0.9% 250ML 250 ML ONE (12:16)
[2018-05-10] MEDS: DAPTOMYCIN 500 MG in SODIUM CHLORIDE 0.9% 100 ML IV SCH (12:31)
--- NOTE | 2018-05-10 13:40 | NUR ---
Spoke to Return To Factory Clerk regarding Right IJ tunneled cath placement. Tech stated that procedure will be done tomorrow. Pt & family aware
[2018-05-10] MEDS ORDERED: MIDAZOLAM HCL 2 MG/2 ML VIAL ONE (15:48)
[2018-05-10] MEDS ORDERED: FENTANYL CITRATE/PF 100MCG/2 ML INJ ONE (15:48)
--- NOTE | 2018-05-10 16:00 | NUR ---
1600 upon arrival to pt floor Informed consent in progress. I walked into room pt was eating taco. In formed Urbano SINGH who spoke with Skin Piler who is aware tunnel cath procedure will be postponed to Thursday with conscious sedation prior to Hd treatment. Informed floor staff and Radiology dept Miguel. Adelia aware.
--- NOTE | 2018-05-10 16:15 | NUR ---
Radiology nurse attempted to pick pt up for procedure but pt was eating. Procedure will be done on Thursday. Pt and family aware. Will monitor
--- NOTE | 2018-05-10 18:41 | NUR ---
Pt resting in bed with family at bedside. Will endorse to next shift
--- NOTE | 2018-05-10 19:35 | NUR ---
Received pt in bed watching tv with family at bedside. No S/S of resp distress. Call light within reach and instructed to call for assistance. Pt verbalized understanding.
[2018-05-10] MEDS: ATORVASTATIN 20 MG TAB PO SCH (21:07)
[2018-05-10] MEDS: INSULIN DETEMIR 100 UNIT/ML PEN SQ SCH (21:09)
[2018-05-11] VITALS (7 sets, daily range): BP systolic 123–150; BP diastolic 58–70
[2018-05-11] MEDS: LEVOTHYROXINE SODIUM 50 MCG TAB PO SCH (05:11)
[2018-05-11] MEDS: INSULIN LISPRO 100 UNIT/1 ML 3ML VIAL SQ SCH ×4 (07:30→20:54)
[2018-05-11] MEDS: PANTOPRAZOLE SOD 40 MG TABEC PO SCH (08:34)
[2018-05-11] MEDS: HYDRALAZINE HCL 25 MG TAB PO SCH ×3 (08:34→20:53)
[2018-05-11] MEDS: SUCRALFATE 1 GM TAB PO SCH ×4 (08:34→20:53)
[2018-05-11] MEDS: DOCUSATE SODIUM 100 MG CAP PO SCH ×2 (08:34→15:57)
[2018-05-11] MEDS: ONDANSETRON HCL INJ 2 MG/ML VIAL IV PRN (08:34)
--- NOTE | 2018-05-11 08:35 | NUR ---
Pt received resting in bed with family at bedside. All meds given as ordered. Call muñoz within reach. Will monitor
[2018-05-11] MEDS: AMLODIPINE BESYLATE 5 MG TAB PO SCH (11:31)
[2018-05-11] MEDS: FUROSEMIDE 40 MG TAB PO SCH (11:31)
[2018-05-11] MEDS: METOPROLOL SUCCINATE 25 MG TAB XL PO SCH (11:32)
--- NOTE | 2018-05-11 16:49 | NUR ---
Pt for Perm-A-cath. Pt and family aware. No complaints voiced. Will monitor
[2018-05-11] MEDS: ATORVASTATIN 20 MG TAB PO SCH (20:53)
[2018-05-11] MEDS: INSULIN DETEMIR 100 UNIT/ML PEN SQ SCH (20:54)
[2018-05-12] VITALS (8 sets, daily range): BP systolic 137–185; BP diastolic 66–85
[2018-05-12] MEDS: LEVOTHYROXINE SODIUM 50 MCG TAB PO SCH (04:55)
[2018-05-12 05:42] LABS: ALBUMIN 2.8 g/dL (3.5-5.0); ALBUMIN/GLOBULIN RATIO 0.7 (0.8-2.0); CALCIUM 8.7 mg/dL (8.4-10.2); CREATININE, SERUM 3.88 mg/dL (0.57-1.11)
[2018-05-12] MEDS: INSULIN LISPRO 100 UNIT/1 ML 3ML VIAL SQ SCH ×4 (07:30→21:30)
[2018-05-12] MEDS: SUCRALFATE 1 GM TAB PO SCH ×4 (07:30→21:26)
[2018-05-12] MEDS: PANTOPRAZOLE SOD 40 MG TABEC PO SCH (07:30)
--- NOTE | 2018-05-12 08:00 | NUR ---
Pt received resting in chair with family at bedside. Alert and oriented x4. Pt is NPO for Permacath placement. Emotional support given. Call muñoz within reach. Will monitor
[2018-05-12] MEDS: FUROSEMIDE 40 MG TAB PO SCH (09:00)
[2018-05-12] MEDS: AMLODIPINE BESYLATE 5 MG TAB PO SCH ×2 (09:00→13:19)
[2018-05-12] MEDS: HYDRALAZINE HCL 25 MG TAB PO SCH ×3 (09:00→21:26)
[2018-05-12] MEDS: DOCUSATE SODIUM 100 MG CAP PO SCH ×2 (09:00→16:20)
[2018-05-12] MEDS: METOPROLOL SUCCINATE 25 MG TAB XL PO SCH ×2 (09:00→13:19)
[2018-05-12] MEDS ORDERED: NORVASC5 MG PO (09:36)
[2018-05-12] MEDS ORDERED: HYDRALAZINE HCL25 MG PO (09:36)
[2018-05-12] MEDS ORDERED: TOPROL XL25 MG PO (09:36)
[2018-05-12] MEDS ORDERED: PROTONIX40 MG/ML PO (09:36)
[2018-05-12] MEDS ORDERED: SYNTHROID50 MCG PO (09:36)
[2018-05-12] MEDS: DAPTOMYCIN 500 MG in SODIUM CHLORIDE 0.9% 100 ML IV SCH (13:18)
--- NOTE | 2018-05-12 16:06 | NUR ---
TOOK OVER PT CARE.PT IN BED RESTING ,NO S/S DISCOMFORT.DIALYSIS FINISHED,REMOVED 1.250 L
--- NOTE | 2018-05-12 16:35 | NUR ---
PT RETURNED TO ROOM V/S 141/68,92,18,LITTLE PAIN Addendum: 05/12/18 at 1858 by Grace Delaney LVN 1835-PT RETURNED TO ROOM
--- NOTE | 2018-05-12 16:45 | NUR ---
SPOKE WITH NURSE IN EXPORT CLERK STATED NEEDED TO CANCEL TIL AM,EXPLAINED TO THEM PT HAS BEEN NPO AND FAMILY VERY UPSET,
--- NOTE | 2018-05-12 17:00 | NUR ---
SPOKE AGAIN WITH CRANK HAND STATED COULD NOT DO IT BECAUSE PT HAD HEPARIN DURING DIALYSIS,EXPLAINE TO THEM SHE DID NOT HAVE HEPARIN ,WILL CALL ME BACK
[2018-05-12] MEDS ORDERED: MIDAZOLAM HCL 2 MG/2 ML VIAL ONE (17:07)
[2018-05-12] MEDS ORDERED: HEPARIN SOD (PORCINE) 1000 UNIT/ML 30ML ONE (17:07)
[2018-05-12] MEDS ORDERED: SODIUM CHLORIDE 0.9% 500ML 1,000 ML ONE (17:08)
[2018-05-12] MEDS ORDERED: FENTANYL CITRATE/PF 100MCG/2 ML INJ ONE (17:08)
[2018-05-12] MEDS ORDERED: LIDOCAINE HCL 2% LOCAL 20 ML VIAL ONE (17:08)
--- NOTE | 2018-05-12 17:30 | NUR ---
PT TRANSPORTED TO TISSUE RECOVERY TECHNICIAN VIA BED
--- NOTE | 2018-05-12 19:05 | NUR ---
Completed bedside rounds with morning nurse. Pt lying in bed HOB 45 degrees. Denies pain at this time. Family at bedside. No acute distress noted.
[2018-05-12] MEDS: ATORVASTATIN 20 MG TAB PO SCH (21:26)
[2018-05-12] MEDS: INSULIN DETEMIR 100 UNIT/ML PEN SQ SCH (21:30)
[2018-05-13 01:01] VITALS: BP 106/62
[2018-05-13] MEDS: LEVOTHYROXINE SODIUM 50 MCG TAB PO SCH (06:44)
[2018-05-13 07:08] VITALS: BP 133/67
--- NOTE | 2018-05-13 07:19 | Diagnostic Imaging Report ---
Procedure: Tunneled right IJ hemodialysis catheter placement dated 05/12/2018. Branch Service Leader: None. Medications: Versed 2 mg intravenous, Fentanyl 50 mcg intravenous. The patient's vital signs, including pulse oximetry, were continuously monitored by the interventional radiology nurse. Fluoroscopy time: 1.6 minutes. Dose area product: 308.0 cGycm2 Contrast used: None Estimated blood loss: Less than 5 cc Complications: No immediate. Procedure in detail: Informed consent for the procedure was obtained from the patient. The right neck and upper chest was prepped and draped in the standard full barrier sterile fashion after the patient was placed in the supine position on the fluoroscopic table. 1% lidocaine was administered into the skin and subcutaneous tissues of the right lower neck for local anesthesia. The indwelling right IJ temporary hemodialysis catheter was removed over a 0.035 " Amplatz superstiff wire. Dilator was placed over the wire while attention was then turned to the right upper chest. A suitable catheter exit site was determined inferior to the clavicle. The skin was marked. 1% lidocaine was used to anesthetize a subcutaneous tract extending from the planned catheter exit site to the venotomy at the right lower neck. A stab incision was made on the right upper chest. Subsequently, the catheter was tunneled from the exit site of the right upper chest to the dilator. The retention cuff of the catheter was advanced well into the subcutaneous tunnel. Serial dilatation was accomplished. Finally, a 16.5-Namibian peel-away sheath was advanced over the wire under fluoroscopic guidance. The wire and inner dilator of the sheath were removed and the HD catheter was advanced through the peel-away sheath, which was then broken and removed. The catheter tip was positioned near the cavoatrial junction Each catheter lumen showed good bidirectional flow. Each lumen was then packed with 2000 units of heparin. The catheter was secured at the exit site on the right upper chest with 4-0 Vicryl sutures in a pursestring fashion. The venotomy at the right lower neck was closed with interrupted Vicryl 4-0 suture. The retention flanges were sutured with 3-0 Ethilon. A sterile dressing was applied. The patient tolerated the procedure well without immediate complication. Impression: Successful placement of a tunneled dual-lumen Bard split tip hemodialysis catheter (16-Namibian, 19-cm tip-cuff length) by a right internal jugular approach. Signed by: Dr. Fitz Marroquin DO on 05/13/2018 7:16 AM
[2018-05-13] MEDS: INSULIN LISPRO 100 UNIT/1 ML 3ML VIAL SQ SCH ×2 (07:30→11:30)
[2018-05-13 08:00] VITALS: BP 142/75
[2018-05-13] MEDS: PANTOPRAZOLE SOD 40 MG TABEC PO SCH (08:33)
[2018-05-13] MEDS: HYDRALAZINE HCL 25 MG TAB PO SCH (08:33)
[2018-05-13] MEDS: SUCRALFATE 1 GM TAB PO SCH ×2 (08:33→11:30)
[2018-05-13] MEDS: FUROSEMIDE 40 MG TAB PO SCH (08:34)
[2018-05-13] MEDS: DOCUSATE SODIUM 100 MG CAP PO SCH (08:34)
[2018-05-13] MEDS: AMLODIPINE BESYLATE 5 MG TAB PO SCH (08:34)
[2018-05-13] MEDS: METOPROLOL SUCCINATE 25 MG TAB XL PO SCH (08:40)
--- NOTE | 2018-05-13 09:00 | NUR ---
Pt was received in bed. Pt is aox4 and able to verbalize needs. Denies any pain at this time. Dressing to right IJ is dry and intact. right subclavian permacath in place some dry blood noted at insertion site. Discussed plan of care with pt and family this morning and both family member and patient verbalized understanding. Will follow up with case management related to dialysis placement.
[2018-05-13] MEDS ORDERED: CUBICIN500 MG/VIA IV ×2 (09:14→14:46)
--- NOTE | 2018-05-13 10:17 | NUR ---
PT ACCEPTED TO [facility], [address] [place] [address] SCHEDULE IS THU, THU AND FRIDAYS T 130 PM, BUT DUE TO THE HOLIDAY HER FIRST VISIT WILL BE SAT MAY 15-AT 1PM THEN REG SCHEDULE WILL BEGIN. LETTER GIVEN TO PATIENT AND FILED IN CHART.
[2018-05-13 12:00] VITALS: BP 125/71
--- NOTE | 2018-05-13 12:39 | Progress Note ---
DATE: INFECTIOUS DISEASE PROGRESS NOTE SUBJECTIVE: The patient is currently lying in bed comfortable. REVIEW OF SYSTEMS: Unremarkable. PHYSICAL EXAMINATION GENERAL: She is currently alert and oriented, does not seem to be in acute distress. VITAL SIGNS: Stable, currently afebrile. HEENT: She is not icteric. NECK: Supple. CHEST: Clear. CARDIAC: S1, S2. No murmur. ABDOMEN: Soft. Bowel sounds are present. EXTREMITIES: No edema. Laboratory data reviewed. Chart reviewed. I had a long discussion with the daughter and Dr. Atkinson at length. IMPRESSION: Acute kidney injury in a patient with underlying chronic kidney disease with diabetes mellitus and perhaps hypertension. The patient is improving. She is going to be discharged home with dialysis, hopefully for a short time depending on clinical progress. Will also continue treatment of her osteomyelitis with daptomycin as ordered at 6 mg/kg q.48 h. Follow C-reactive protein. The prescription for her blood pressure medicine is being written by Dr. Atkinson. Apparently she had no blood pressure problem before all these problems she is having. She just changed her primary care physician. Her diabetes mellitus is to be seen by Dr. Farnsworth. Follow up with primary care doctor, Dr. Holloway, and see me back in a few weeks, 2 weeks or so. Job#: [id number]
[2018-05-13] MEDS ORDERED: LASIX40 MG PO (14:37)
[2018-05-13] MEDS ORDERED: HYDRALAZINE HCL25 MG PO (14:38)
[2018-05-13] MEDS ORDERED: METOPROLOL SUCC25 MG PO (14:38)
[2018-05-13] MEDS ORDERED: LEVEMIR100 UNIT/1 SC (14:39)
[2018-05-13] MEDS ORDERED: SYNTHROID50 MCG PO (14:40)
--- NOTE | 2018-05-13 15:34 | NUR ---
Nutrition Screen Note RD Recommendation for Physician: - Rec advancing to renal diabetic diet as medically feasible - RD provided education on renal diet 05/13 Plan of Care: RD following, monitoring for adequacy and tolerance Nutrition reason for involvement: Follow up, Dx new HD Primary Diagnose(s):Acute renal failure, hyperkalemia Ht:61 in Wt:170lbs 05/01 ; 195lb 05/07 ; 177.31lb 05/13 BMI:32.1 kg/m2 IBW:105lbs RD Assessment: (05/13/18) Pt is going to be discharged home with dialysis. Visited pt in the room. Pt reports good appetite with ~75-100% recorded meal intake. No GI complains noted. LBM 05/13, normal per pt. RD provided education on renal diet. All questions have been answered. Will continue to monitor and follow. (05/07/2018) Chart reviewed. Pt was started on HD today. Pt was sleeping during my visit. Czech speaking only. Spoke with RN regarding her PO intake. RN states pt doesnt like hospital foods and has been eating foods from home. No GI complains noted. No change in nutrition status. Will continue to monitor and follow. (05/01/2018) Initial encounter with patient. Son was present at the time of visit and translated as pt was Czech Speaking. Pt was eating food brought by Son. 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 Pt does not like " hospital" food. No significant wt changes or any difficulty chewing or swallowing. Current Diet: NPO Malnutrition Evaluation (05/01/2018) The patient does not meet criteria for a specified degree of malnutrition at this time. Will re-evaluate at follow-up as appropriate. Diet Education Needs Assessment: Diet education indicated. Learner(s): daughter, pt Barriers: eating habits Cultural/Language Modifications: Sudanese Readiness: unsure Method: handouts, explanation Topics: Renal diet Understanding/Compliance: Pt and daughter understood. All questions have been answered. Diet Adequacy: Meeting calorie needs, Meeting protein needs, Meeting fluid needs Tolerance: Tolerating PO Nutrition Care Level: low
--- NOTE | 2018-05-13 16:00 | NUR ---
All discharge instructions explained to patient, family who are at the bedside. Pt and family verbalize understanding of all discharge instructions.
--- NOTE | 2018-05-13 18:19 | Discharge Summary ---
The patient requests discharge this evening. A [facility] 58-year-old woman admitted on 05/01 with renal failure. She had been discharged from the hospital on April 22. She was known to have osteomyelitis of the pubic symphysis and an abscess in the right thigh. She was followed after discharge by Dr. Magana for continued IV antibiotic therapy with vancomycin. She was found to have an elevated creatinine of 6.6, which was a new finding. Creatinine having been normal at discharge. She was felt to have acute kidney injury. She was seen by Dr. Atkinson who recommended emergent dialysis. She continued to be followed by Dr. Magana in the hospital. She has history of hypertension, diabetes, leg abscess and osteomyelitis. Potassium was elevated at 6.7. It was Dr. Atkinson's impression that the patient had life threatening hyperkalemia and acute tubular necrosis, metabolic acidosis, which was multifactorial. Her Benicar was stopped and emergent dialysis recommended and accomplished. Vancomycin has been stopped. The patient continued to improve clinically, but creatinine remained elevated, and a tunneled dialysis catheter was placed. The patient was discharged once outpatient dialysis could be scheduled. Dr. Magana will continue to follow the patient as an outpatient. He has recommended daptomycin, a dose of 6 mg per kilogram every 48 hours to complete an eight week course. Her new primary care physician is Dr. Holloway, and he will follow her as an outpatient. She is anemic, presumably anemia of chronic disease with a hemoglobin of 8.4 on discharge. Hemoglobin A1c was 10.1. Low iron had been replaced. TSH was borderline elevated at 6.5. For control of hypertension and diabetes mellitus she continued amlodipine 2.5 mg, Lipitor 20, Colace, Lasix 40, Apresoline 50 t.i.d., Levemir insulin 3 units at night, Levoxyl 50 mcg daily, metoprolol 12.5 daily, Protonix [address] mg[address] Consult[address] Farnsworth, endocrinology, Dr. Atkinson, Dr. Magana. The final insulin regimen will be prescribed by Dr. Farnsworth, and blood pressure by Dr. Atkinson, who will also follow her as an outpatient in the dialysis center. She is discharged much improved with anticipation that renal function will gradually recover, though this is not guaranteed. This was discussed at length with the patient's son and daughter. TIFFANIE SEVERINO MD Job#: [id number] cc: MORIAH MAGANA MD cc: SERGEI ATKINSON MD cc. Hussein BENITO
== END 2018-05-13 16:05 | disposition home or self-care (01) | DRG 674 ==
LOC: ER 19:19 → ERHOLD 05-01 00:24 → ICU 05-01 02:05 → MED/SURG3 05-04 09:53
PROVIDERS: ADMIT Internal Medicine; ATTEND Internal Medicine
PROC: 02HV33Z Insertion of Infusion Device into Superior Vena Cava, Percutaneous Approach (ICD-10-PCS; principal; 2018-04-30)
PROC: B548ZZA Ultrasonography of Superior Vena Cava, Guidance (ICD-10-PCS; 2018-04-30)
PROC: 5A1D70Z Performance of Urinary Filtration, Intermittent, Less than 6 Hours Per Day (ICD-10-PCS; 2018-05-01)
PROC: 5A1D70Z Performance of Urinary Filtration, Intermittent, Less than 6 Hours Per Day (ICD-10-PCS; 2018-05-02)
PROC: 5A1D70Z Performance of Urinary Filtration, Intermittent, Less than 6 Hours Per Day (ICD-10-PCS; 2018-05-03)
PROC: 5A1D70Z Performance of Urinary Filtration, Intermittent, Less than 6 Hours Per Day (ICD-10-PCS; 2018-05-05)
PROC: 5A1D70Z Performance of Urinary Filtration, Intermittent, Less than 6 Hours Per Day (ICD-10-PCS; 2018-05-06)
PROC: 5A1D70Z Performance of Urinary Filtration, Intermittent, Less than 6 Hours Per Day (ICD-10-PCS; 2018-05-07)
PROC: 5A1D70Z Performance of Urinary Filtration, Intermittent, Less than 6 Hours Per Day (ICD-10-PCS; 2018-05-10)
PROC: 0JH63XZ Insertion of Tunneled Vascular Access Device into Chest Subcutaneous Tissue and Fascia, Percutaneous Approach (ICD-10-PCS; 2018-05-12)
PROC: 02HV33Z Insertion of Infusion Device into Superior Vena Cava, Percutaneous Approach (ICD-10-PCS; 2018-05-12)
DX: N17.0 Acute kidney failure with tubular necrosis (principal); M86.8X8 Other osteomyelitis, other site; E87.2 Acidosis; I12.0 Hypertensive chronic kidney disease with stage 5 chronic kidney disease or end stage renal disease; L03.319 Cellulitis of trunk, unspecified; T36.8X5A Adverse effect of other systemic antibiotics, initial encounter; E11.69 Type 2 diabetes mellitus with other specified complication; E11.42 Type 2 diabetes mellitus with diabetic polyneuropathy; E87.5 Hyperkalemia; E78.5 Hyperlipidemia, unspecified; Z83.3 Family history of diabetes mellitus; Z82.49 Family history of ischemic heart disease and other diseases of the circulatory system; E86.0 Dehydration; D64.9 Anemia, unspecified; R11.2 Nausea with vomiting, unspecified; E11.22 Type 2 diabetes mellitus with diabetic chronic kidney disease; R53.81 Other malaise; N18.6 End stage renal disease; Z99.2 Dependence on renal dialysis; M12.88 Other specific arthropathies, not elsewhere classified, other specified site; Z79.4 Long term (current) use of insulin
CPT/HCPCS: 36415; 36555; 36556; 36558; 74018; 74470; 76770; 76937; 77001; 80048; 80053; 80076; 80202; 81001; 82150; 82550; 82570; 82948; 83036; 83605; 83690; 83735; 84156; 84439; 84443; 85025; 85610; 85730; 86704; 86706; 86850; 86900; 87040; 87086; 87340; 90962; 93005; 97139; 99284; C1769; J0610; J1644; J2001; J2150; J2250; J2270; J2405; J7030; J7040; J7050; J7799

== ENCOUNTER 2024-02-08 15:30 | Emergency (ER) | payer MEDICARE, OTHER ==
[~2024-02-08] VITALS: Ht 152.4 cm; Wt 89.8 kg
[~2024-02-08 15:30] MED LIST changes: +BENICAR20 MG PO; +CUBICIN500 MG/VIA IV; +FUROSEMIDE40 MG PO; +HYDRALAZINE HCL25 MG PO; +LASIX40 MG PO; +LEVEMIR100 UNIT/1 SC; +METOPROLOL SUCC25 MG PO; +NORVASC5 MG PO; +PROTONIX40 MG/ML PO; +SYNTHROID50 MCG PO; +TOPROL XL25 MG PO
[2024-02-08] MEDS ORDERED: SALONPAS1 EACH EXT (20:53)
[2024-02-08 21:34] VITALS: PULSE 75; RESP 16; TEMP 98.3
[2024-02-08 22:15] VITALS: BP 151/79; PULSE 75; RESP 16; TEMP 98.3; O2SAT 98
== END 2024-02-08 22:18 | disposition home or self-care (01) ==
LOC: FSED 15:33
DX: M17.11 Unilateral primary osteoarthritis, right knee (principal); S86.811A Strain of other muscle(s) and tendon(s) at lower leg level, right leg, initial encounter; I10 Essential (primary) hypertension; E11.649 Type 2 diabetes mellitus with hypoglycemia without coma; E78.00 Pure hypercholesterolemia, unspecified
CPT/HCPCS: 36415; 80053; 82948; 85025; 85379; 85610; 93925; 93970; 93971; 99284